=== PATIENT | female | born 1950 | race Caucasian/White ===

== ENCOUNTER → 2016-07-12 | Outpatient (CLI) | payer MEDICARE, OTHER ==
--- NOTE | 2016-07-12 16:51 | REP ---
Chest x-ray: Two views. History: Abnormal lung sounds. Findings: The lungs are well inflated and clear. Pleural angles are sharp. Heart size is normal. The aorta is somewhat tortuous. Pulmonary vasculature is not increased. No significant bony abnormality is seen. No change from the May 13, 2015 prior chest x-ray. Impression: No active disease. Signed by Rudi Bazan MD 07/12/2016 05:02 P
== END ==
LOC: M LRY 16:03
PROVIDERS: ATTEND Nurse Practitioner Family
DX: R09.89 Other specified symptoms and signs involving the circulatory and respiratory systems (principal)

== ENCOUNTER → 2016-07-12 | Outpatient (REF) | payer MEDICARE, OTHER | END | disposition home or self-care (01) | LOC: M SFHCLERA 15:25 | PROVIDERS: ATTEND Nurse Practitioner Family | DX: R30.0 Dysuria (principal); J45.901 Unspecified asthma with (acute) exacerbation | CPT/HCPCS: 71020; 81002; 87086; 87880; 94640; G0463 ==

== ENCOUNTER → 2017-08-19 | Outpatient (CLI) | payer MEDICARE, OTHER | LOC: M LRY 15:33 | DX: R50.9 Fever, unspecified (principal); R06.2 Wheezing; R10.32 Left lower quadrant pain; R35.0 Frequency of micturition | CPT/HCPCS: 71046; 87086 ==

== ENCOUNTER → 2017-08-19 | Outpatient (REF) | payer MEDICARE, OTHER | LOC: M SFHCLERA 16:11 | DX: R35.0 Frequency of micturition (principal) | CPT/HCPCS: 87086 ==

== ENCOUNTER → 2018-09-25 | Outpatient (REF) | payer MEDICARE, BC, OTHER ==
[2018-09-25 20:05] LABS: CHLAMYDIA DNA AMPLIFICATION NEGATIVE (NEGATIVE); GC DNA AMPLIFICATION NEGATIVE (NEGATIVE)
== END ==
LOC: M SFHCLERA 11:52
PROVIDERS: ATTEND Nurse Practitioner Family
DX: R30.0 Dysuria (principal)
CPT/HCPCS: 81002; 87086; 87661; G0463

== ENCOUNTER → 2019-05-29 | Outpatient (CLI) | payer MEDICARE, BC, OTHER | LOC: M RAD 10:47 | PROVIDERS: ATTEND Internal Medicine Cardiovascular Disease | DX: I50.9 Heart failure, unspecified (principal) ==

== ENCOUNTER → 2019-10-12 | Outpatient (REF) | payer MEDICARE, BC, OTHER | LOC: M SFHCLERA 14:08 | PROVIDERS: ATTEND Physician Assistant | DX: R39.15 Urgency of urination (principal) ==

== ENCOUNTER → 2019-10-12 | Outpatient (CLI) | payer MEDICARE, BC, OTHER ==
--- NOTE | 2019-10-12 16:15 | REP ---
LEFT HIP, TWO VIEWS: There is no evidence of an acute fracture, dislocation or intrinsic bone disease. IMPRESSION: No fracture or dislocation. Electronically Signed by Leo Baez MD 10/12/2019 04:24 P
== END ==
LOC: M LRY 14:13
PROVIDERS: ATTEND Physician Assistant
DX: M79.605 Pain in left leg (principal); M54.9 Dorsalgia, unspecified; M25.552 Pain in left hip
CPT/HCPCS: 73502; 81002; 87086; G0463

== ENCOUNTER → 2020-03-30 | Outpatient (REF) | payer MEDICARE, BC, OTHER ==
[2020-03-30 20:58] LABS: APPEARANCE, URINE HAZY (CLEAR); BACTERIA, URINE AUTO NEGATIVE (NEGATIVE); BILIRUBIN, URINE AUTO NEGATIVE (NEGATIVE); BLOOD, URINE BLOOD NEGATIVE (NEGATIVE); COLOR, URINE YELLOW (YELLOW); GLUCOSE, URINE (UA) AUTO 1+ mg/dL (NEGATIVE); KETONE, URINE AUTO NEGATIVE (NEGATIVE); LEUKOCYTE ESTERASE, URINE AUTO 2+ (NEGATIVE); NITRITE, URINE AUTO NEGATIVE (NEGATIVE); PROTEIN, URINE AUTO NEGATIVE (NEGATIVE); RBC, URINE AUTO 4 /HPF (0-3); SPECIFIC GRAVITY URINE AUTO 1.006 (1.002-1.035); SQUAMOUS EPITHELIAL CELL UR AU 1 /HPF (0-6); UROBILINOGEN, URINE AUTO 0.2 mg/dL (0.0-2.0); WBC, URINE AUTO 7 /HPF (0-3)
== END ==
LOC: M LAB 20:48
PROVIDERS: ATTEND Physician Assistant Medical
DX: N39.0 Urinary tract infection, site not specified (principal)

== ENCOUNTER → 2020-07-10 | Outpatient (REF) | payer MEDICARE, BC, OTHER ==
[2020-07-10 18:32] LABS: C REACTIVE PROTEIN QUANTITATIV 0.45 MG/DL (0.00-0.30)
[2020-07-14 17:11] LABS: ANCA-ATYPICAL <1:20 titer (Neg:<1:20); ANTI DS-DNA AB Negative (Negative); ANTINUCLEAR ANTIBODIES DIRECT Negative (Negative); CYTOPLASMIC NEUTROP AB ANCA-C <1:20 titer (Neg:<1:20); PERINUCLEAR AB ANCA-P <1:20 titer (Neg:<1:20)
== END ==
LOC: M LAB REF 16:59
PROVIDERS: ATTEND Internal Medicine Nephrology
DX: I50.9 Heart failure, unspecified (principal); M32.10 Systemic lupus erythematosus, organ or system involvement unspecified

== ENCOUNTER → 2020-08-01 | Outpatient (CLI) | payer MEDICARE, BC, OTHER ==
--- NOTE | 2020-08-05 15:44 | SLEEPHOME ---
DATE: 08/01/2020 ORDERED BY: Ginger Barrera NP Diagnostic home sleep testing was performed due to concern for the obstructive sleep apnea syndrome. For testing, a nocturnal T3 respiratory monitoring device was used. Continuous record was made of pulse, oxygen saturation, air flow, chest and abdominal strain, and body position. Nine hours and 59 minutes of data were reviewed. There were 9 hours and 53 minutes marked as time in bed. During the interval marked time in bed, there were 119 respiratory events identified of 10 seconds in duration or greater for a respiratory event index of 12. The events were primarily obstructive. Ten mixed and central apneas were seen. Baseline pulse rate was 64 beats per minute. Pulse rate ranged 33 to 165. Baseline saturation was 93%. Saturations fell as low as 51%. Testing was performed in both the supine and nonsupine positions. IMPRESSION: Abnormal home sleep testing with repetitive respiratory events and oxygen desaturations to 51% with a respiratory event index of 12 is consistent with the obstructive sleep apnea syndrome. RECOMMENDATION: The patient should be encouraged to undergo a formal sleep evaluation.
== END ==
LOC: M SLEEP HO 08:54
PROVIDERS: ATTEND Physician Assistant
DX: R06.02 Shortness of breath (principal)

== ENCOUNTER 2021-05-19 18:47 | Emergency (ER) | payer MEDICARE, BC, OTHER ==
[~2021-05-19] VITALS: Ht 157.5 cm; Wt 106.8 kg
[2021-05-19] MEDS ORDERED: NS 500 ML IV ONE (19:00)
--- NOTE | 2021-05-19 19:44 | REP ---
INDICATION: Coronavirus workup. COMPARISON: PA and lateral chest images, 08/19/2017. TECHNIQUE: AP portable chest image was obtained. FINDINGS: There is airspace disease along the left lower lateral lung consistent with a lobar pneumonia. The lungs are otherwise clear. There are no pleural effusions. The heart borders and mediastinum are normal. The upper abdominal bowel gas pattern is normal. There are no significant bony abnormalities of the chest. IMPRESSION: Airspace consolidation in the left lung inferolaterally most consistent with a lobar pneumonia. <Electronically signed by Jose Leslie > 05/19/211940
[2021-05-19 19:49] LABS: BASO % 0.3 % (0.0-1.0); EOS # 0.1 10^3/uL (0.0-0.5); EOS % 1.1 % (0.0-3.0); HEMATOCRIT 34.1 % (36.0-47.0); HEMOGLOBIN 11.2 g/dl (12.0-15.5); LYMPH # 1.2 10^3/uL (1.5-5.0); MEAN CORPUSCULAR HEMOGLOBIN 29.3 pg (27.0-33.0); MEAN CORPUSCULAR HGB CONC 32.8 g/dl (32.0-36.5); MEAN CORPUSCULAR VOLUME 89.3 fl (80.0-96.0); MONO # 1.1 10^3/uL (0.0-0.8); MONO % 9.9 % (2.0-8.0); NEUTROPHILS # 8.6 10^3/uL (1.5-8.5); PLATELET COUNT, AUTOMATED 254 10^3/uL (150-450); RED BLOOD COUNT 3.82 10^6/uL (4.00-5.40); WHITE BLOOD COUNT 11.2 10^3/uL (4.0-10.0)
[2021-05-19 20:01] LABS: INR 1.24
[2021-05-19 20:02] LABS: PARTIAL THROMBOPLASTIN TIME 30.3 SECONDS (25.9-37.0)
[2021-05-19] MEDS ORDERED: LISI-898 PO (20:02)
[2021-05-19] MEDS ORDERED: PRAV20TA2 PO (20:02)
[2021-05-19] MEDS ORDERED: TORS10TA3 PO (20:02)
[2021-05-19] MEDS ORDERED: INSUDET SC (20:02)
[2021-05-19] MEDS ORDERED: SPIR-10 PO (20:02)
[2021-05-19 20:11] LABS: ALBUMIN 2.1 GM/DL (3.2-5.2); ALT/SGPT 27 U/L (12-78); BILIRUBIN,TOTAL 2.3 MG/DL (0.2-1.0); BLOOD UREA NITROGEN 12 MG/DL (7-18); CALCIUM LEVEL 8.5 MG/DL (8.8-10.2); CARBON DIOXIDE LEVEL 31 MEQ/L (21-32); CHLORIDE LEVEL 101 MEQ/L (98-107); CREATININE FOR GFR 0.94 MG/DL (0.55-1.30); D-DIMER QUANT 3917.09 ng/ml (<500); FERRITIN 1323 NG/ML (8-252); GLOMERULAR FILTRATION RATE > 60.0 (>39); GLUCOSE, FASTING 261 MG/DL (70-100); LDH LACTATE DEHYDROGENASE 257 U/L (84-246); MAGNESIUM LEVEL 1.8 MG/DL (1.8-2.4); POTASSIUM SERUM 3.2 MEQ/L (3.5-5.1); SODIUM LEVEL 139 MEQ/L (136-145); TOTAL PROTEIN 6.5 GM/DL (6.4-8.2)
[2021-05-19 20:22] LABS: MB/CK RELATIVE INDEX 0.87 (< OR =4)
--- OUTSIDE RECORDS SUMMARY | 2021-05-19 20:57 | CCD ---
Author Author [facility] Organization [facility] Address Unknown Phone Unavailable Care Team Providers Care Crystal Grinder Name Role Phone REGGIE, L CHANDA PA Unavailable Unavailable REGGIE, L CHANDA PA Unavailable Unavailable REGGIE, L CHANDA PA Unavailable Unavailable REGGIE, L CHANDA PA Unavailable Unavailable REGGIE, L CHANDA PA Unavailable Unavailable REGGIE, L CHANDA PA Unavailable Unavailable REGGIE, L CHANDA PA Unavailable Unavailable REGGIE, L CHANDA PA Unavailable Unavailable REGGIE, L CHANDA PA Unavailable Unavailable REGGIE, L CHANDA PA Unavailable Unavailable REGGIE, L CHANDA PA Unavailable Unavailable REGGIE, L CHANDA PA Unavailable Unavailable REGGIE, L CHANDA PA Unavailable Unavailable REGGIE, L CHANDA PA Unavailable Unavailable REGGIE, L CHANDA PA Unavailable Unavailable REGGIE, L CHANDA PA Unavailable Unavailable Hadian, Edgar Unavailable Unavailable Hadian, Edgar Unavailable Unavailable Hadian, Edgar Unavailable Unavailable Hadian, Edgar Unavailable Unavailable Hadian, Edgar Unavailable Unavailable Hadian, Edgar Unavailable Unavailable Hadian, Edgar Unavailable Unavailable Hadian, Edgar Unavailable Unavailable Hadian, Edgar Unavailable Unavailable Hadian, Edgar Unavailable Unavailable Hadian, Edgar Unavailable Unavailable Hadian, Edgar Unavailable Unavailable Hadian, Edgar Unavailable Unavailable Hadian, Edgar Unavailable Unavailable Hadian, Edgar Unavailable Unavailable Hadian, Edgar Unavailable Unavailable Hadian, Edgar Unavailable Unavailable Hadian, Edgar Unavailable Unavailable Hadian, Edgar Unavailable Unavailable Hadian, Edgar Unavailable Unavailable Hadian, Edgar Unavailable Unavailable Hadian, Edgar Unavailable Unavailable Hadian, Edgar Unavailable Unavailable Hadian, Edgar Unavailable Unavailable Hadian, Edgar Unavailable Unavailable Hadian, Edgar Unavailable Unavailable Hadian, Edgar Unavailable Unavailable Hadian, Edgar Unavailable Unavailable Hadian, Edgar Unavailable Unavailable Hadian, Edgar Unavailable Unavailable Hadian, Edgar Unavailable Unavailable Hadian, Edgar Unavailable Unavailable Hadian, Edgar Unavailable Unavailable Hadian, Edgar Unavailable Unavailable Hadian, Edgar Unavailable Unavailable Hadian, Edgar Unavailable Unavailable Hadian, Edgar Unavailable Unavailable Hadian, Edgar Unavailable Unavailable Hadian, Edgar Unavailable Unavailable Hadian, Edgar Unavailable Unavailable Hadian, Edgar Unavailable Unavailable Hadian, Edgar Unavailable Unavailable Griffiths, L Radha LIGHT INDUSTRIAL SUPERVISOR Unavailable Unavailable Griffiths, L Radha LIGHT INDUSTRIAL SUPERVISOR Unavailable Unavailable Griffiths, L Radha LIGHT INDUSTRIAL SUPERVISOR Unavailable Unavailable Griffiths, L Radha LIGHT INDUSTRIAL SUPERVISOR Unavailable Unavailable Griffiths, L Radha LIGHT INDUSTRIAL SUPERVISOR Unavailable Unavailable Griffiths, L Radha LIGHT INDUSTRIAL SUPERVISOR Unavailable Unavailable Griffiths, L Radha LIGHT INDUSTRIAL SUPERVISOR Unavailable Unavailable Griffiths, L Radha LIGHT INDUSTRIAL SUPERVISOR Unavailable Unavailable Griffiths, L Radha LIGHT INDUSTRIAL SUPERVISOR Unavailable Unavailable Griffiths, L Radha LIGHT INDUSTRIAL SUPERVISOR Unavailable Unavailable Griffiths, L Radha LIGHT INDUSTRIAL SUPERVISOR Unavailable Unavailable Griffiths, L Radha LIGHT INDUSTRIAL SUPERVISOR Unavailable Unavailable Griffiths, L Radha LIGHT INDUSTRIAL SUPERVISOR Unavailable Unavailable Griffiths, L Radha LIGHT INDUSTRIAL SUPERVISOR Unavailable Unavailable Griffiths, L Radha LIGHT INDUSTRIAL SUPERVISOR Unavailable Unavailable Griffiths, L Radha LIGHT INDUSTRIAL SUPERVISOR Unavailable Unavailable Griffiths, L Radha LIGHT INDUSTRIAL SUPERVISOR Unavailable Unavailable Griffiths, L Radha LIGHT INDUSTRIAL SUPERVISOR Unavailable Unavailable Griffiths, L Radha LIGHT INDUSTRIAL SUPERVISOR Unavailable Unavailable Griffiths, L Radha LIGHT INDUSTRIAL SUPERVISOR Unavailable Unavailable Griffiths, L Radha LIGHT INDUSTRIAL SUPERVISOR Unavailable Unavailable Griffiths, L Radha LIGHT INDUSTRIAL SUPERVISOR Unavailable Unavailable Griffiths, L Radha LIGHT INDUSTRIAL SUPERVISOR Unavailable Unavailable Griffiths, L Radha LIGHT INDUSTRIAL SUPERVISOR Unavailable Unavailable Griffiths, L Radha LIGHT INDUSTRIAL SUPERVISOR Unavailable Unavailable Griffiths, L Radha LIGHT INDUSTRIAL SUPERVISOR Unavailable Unavailable Griffiths, L Radha LIGHT INDUSTRIAL SUPERVISOR Unavailable Unavailable Griffiths, L Radha LIGHT INDUSTRIAL SUPERVISOR Unavailable Unavailable Griffiths, L Radha LIGHT INDUSTRIAL SUPERVISOR Unavailable Unavailable Griffiths, L Radha LIGHT INDUSTRIAL SUPERVISOR Unavailable Unavailable Griffiths, L Radha LIGHT INDUSTRIAL SUPERVISOR Unavailable Unavailable Griffiths, L Radha LIGHT INDUSTRIAL SUPERVISOR Unavailable Unavailable Griffiths, L Radha LIGHT INDUSTRIAL SUPERVISOR Unavailable Unavailable Griffiths, L Radha LIGHT INDUSTRIAL SUPERVISOR Unavailable Unavailable Griffiths, L Radha LIGHT INDUSTRIAL SUPERVISOR Unavailable Unavailable Griffiths, L Radha LIGHT INDUSTRIAL SUPERVISOR Unavailable Unavailable Griffiths, L Radha LIGHT INDUSTRIAL SUPERVISOR Unavailable Unavailable Griffiths, L Radha LIGHT INDUSTRIAL SUPERVISOR Unavailable Unavailable Griffiths, L Radha LIGHT INDUSTRIAL SUPERVISOR Unavailable Unavailable Griffiths, L Radha LIGHT INDUSTRIAL SUPERVISOR Unavailable Unavailable Griffiths, L Radha LIGHT INDUSTRIAL SUPERVISOR Unavailable Unavailable Griffiths, L Radha LIGHT INDUSTRIAL SUPERVISOR Unavailable Unavailable REGGIE, L CHANDA PA Unavailable Unavailable REGGIE, L CHANDA PA Unavailable Unavailable REGGIE, L CHANDA PA Unavailable Unavailable REGGIE, L CHANDA PA Unavailable Unavailable REGGIE, L CHANDA PA Unavailable Unavailable REGGIE, L CHANDA PA Unavailable Unavailable REGGIE, L CHANDA PA Unavailable Unavailable REGGIE, L CHANDA PA Unavailable Unavailable REGGIE, L CHANDA PA Unavailable Unavailable REGGIE, L CHANDA PA Unavailable Unavailable REGGIE, L CHANDA PA Unavailable Unavailable REGGIE, L CHANDA PA Unavailable Unavailable REGGIE, L CHANDA PA Unavailable Unavailable REGGIE, L CHANDA PA Unavailable Unavailable REGGIE, L CHANDA PA Unavailable Unavailable REGGIE, L CHANDA PA Unavailable Unavailable WATERS, A JOSE MD Unavailable Unavailable WATERS, A JOSE MD Unavailable Unavailable WATERS, A JOSE MD Unavailable Unavailable WATERS, A JSOE MD Unavailable Unavailable WATERS, A JOSE MD Unavailable Unavailable WATERS, A JOSE MD Unavailable Unavailable WATERS, Romario JOSE MD Unavailable Unavailable WATERS, Romario JOSE MD Unavailable Unavailable WATERS, Romario JOSE Unavailable Unavailable WATERS, A JOSE MD Unavailable Unavailable WATERS, A JOSE MD Unavailable Unavailable WATERS, A JOSE MD Unavailable Unavailable WATERS, A JOSE MD Unavailable Unavailable WATERS, A JOSE MD Unavailable Unavailable WATERS, A JOSE MD Unavailable Unavailable WATERS, A JOSE MD Unavailable Unavailable WATERS, A JOSE MD Unavailable Unavailable WATERS, A JOSE MD Unavailable Unavailable WATERS, A JOSE MD Unavailable Unavailable WATERS, A JOSE MD Unavailable Unavailable WATERS, A JOSE MD Unavailable Unavailable WATERS, A JOSE MD Unavailable Unavailable WATERS, A JOSE MD Unavailable Unavailable WATERS, A JOSE MD Unavailable Unavailable WATERS, A JOSE MD Unavailable Unavailable WATERS, A JOSE MD Unavailable Unavailable WATERS, A JOSE MD Unavailable Unavailable WATERS, A JOSE MD Unavailable Unavailable WATERS, A JOSE MD Unavailable Unavailable WATERS, A JOSE MD Unavailable Unavailable Shambo, Sylvain Prather MD Unavailable Unavailable Shambo, Sylvain Prather MD Unavailable Unavailable Shambo, Sylvain Prather MD Unavailable Unavailable Shambo, Sylvain Prather MD Unavailable Unavailable Shambo, Sylvain Prather MD Unavailable Unavailable Shambo, Sylvain Prather MD Unavailable Unavailable Shambo, Sylvain Prather MD Unavailable Unavailable Shambo, Sylvain Prather MD Unavailable Unavailable Shambo, Sylvain Prather MD Unavailable Unavailable Shambo, Sylvani Prather MD Unavailable Unavailable Shambo, Sylvain Prather MD Unavailable Unavailable Shambo, Sylvain Prather MD Unavailable Unavailable Shambo, Sylvain Prather MD Unavailable Unavailable Shambo, Sylvain Prather MD Unavailable Unavailable Shambo, Sylvain Prather MD Unavailable Unavailable Shambo, Sylvain Prather MD Unavailable Unavailable Shambo, Sylvain Prather MD Unavailable Unavailable Shambo, Sylvain Prather MD Unavailable Unavailable Shambo, Sylvain Prather MD Unavailable Unavailable Shambo, Sylvain Prather MD Unavailable Unavailable Shambo, Sylvain Prather MD Unavailable Unavailable Shambo, Sylvain Prather MD Unavailable Unavailable Shambo, Sylvain Prather MD Unavailable Unavailable Shambo, Sylvain Prather MD Unavailable Unavailable Shambo, Sylvain Prather MD Unavailable Unavailable Shambo, Sylvain Prather MD Unavailable Unavailable Shambo, Sylvain Prather MD Unavailable Unavailable Shambo, Sylvain Prather MD Unavailable Unavailable Shambo, Sylvain Prather MD Unavailable Unavailable Shambo, Sylvain Prather MD Unavailable Unavailable Shambo, Sylvain Prather MD Unavailable Unavailable Shambo, Sylvain Prather MD Unavailable Unavailable Shambo, Sylvain Prather MD Unavailable Unavailable Shambo, Sylvain Prather MD Unavailable Unavailable Shambo, Sylvain Prather MD Unavailable Unavailable Shambo, Sylvain Prather MD Unavailable Unavailable Shambo, Sylvain Prather MD Unavailable Unavailable Shambo, Sylvain Prather MD Unavailable Unavailable Shambo, Sylvain Prather MD Unavailable Unavailable Shambo, Sylvain Prathre MD Unavailable Unavailable Shambo, Sylvain Prather MD Unavailable Unavailable Shambo, Sylvain Prather MD Unavailable Unavailable Shambo, Sylvain Prather MD Unavailable Unavailable Shambo, Sylvain Prather MD Unavailable Unavailable Shambo, Sylvain Prather MD Unavailable Unavailable Shambo, Sylvain Prather MD Unavailable Unavailable Shambo, Sylvain Prather MD Unavailable Unavailable Shambo, Sylvain Prather MD Unavailable Unavailable Shambo, Sylvain Prather MD Unavailable Unavailable Shambo, Sylvain Prather MD Unavailable Unavailable Shambo, Sylvain Prather MD Unavailable Unavailable Shambo, Sylvain Prather MD Unavailable Unavailable Shambo, Sylvain Prather MD Unavailable Unavailable Shambo, Sylvain Prather MD Unavailable Unavailable Shambo, Sylvain Prather MD Unavailable Unavailable Shambo, Sylvain Prather MD Unavailable Unavailable Shambo, Sylvain Prather MD Unavailable Unavailable Shambo, Sylvain Prather MD Unavailable Unavailable Shambo, Sylvain Prather MD Unavailable Unavailable Shambo, Sylvain Prather MD Unavailable Unavailable Shambo, Sylvain Prather MD Unavailable Unavailable Shambo, Sylvain Prather MD Unavailable Unavailable Shambo, Sylvain Prather MD Unavailable Unavailable Shambo, Sylvain Prather MD Unavailable Unavailable Shambo, Sylvain Prather MD Unavailable Unavailable Shambo, Sylvain Prather MD Unavailable Unavailable Shambo, Sylvain Prather MD Unavailable Unavailable NOT, SPECIFIED Unavailable Unavailable HARO, W KETURAH OD Unavailable Unavailable HARO, W KETURAH OD Unavailable Unavailable HARO, W KETURAH OD Unavailable Unavailable HARO, W KETURAH OD Unavailable Unavailable HARO, W KETURAH OD Unavailable Unavailable HARO, W KETURAH OD Unavailable Unavailable HARO, W KETURAH OD Unavailable Unavailable HARO, W KETURAH OD Unavailable Unavailable HARO, W KETURAH OD Unavailable Unavailable HARO, W KETURAH OD Unavailable Unavailable HARO, W KETURAH OD Unavailable Unavailable CHANLIECCO, Pb BONILLA MD Unavailable Unavailable CHANLIECCO, Pb BONILLA MD Unavailable Unavailable CHANLIECCO, Pb BONILLA MD Unavailable Unavailable CHANLIECCO, Pb BONILLA MD Unavailable Unavailable CHANLIECCO, Pb BONILLA MD Unavailable Unavailable CHANLIECCO, Pb BONILLA MD Unavailable Unavailable CHANLIECCO, Pb BONILLA MD Unavailable Unavailable CHANLIECCO, Pb BONILLA MD Unavailable Unavailable CHANLIECCO, Pb BONILLA MD Unavailable Unavailable CHANLIECCO, Pb BONILLA MD Unavailable Unavailable CHANLIECCO, Pb BONILLA MD Unavailable Unavailable Re-disclosure Warning The records that you are about to access may contain information from federally-assisted alcohol or drug abuse programs. If such information is present, then the following federally mandated warning applies: This information has been disclosed to you from records protected by federal confidentiality rules (42 CFR part 2). The federal rules prohibit you from making any further disclosure of this information unless further disclosure is expressly permitted by the written consent of the person to whom it pertains or as otherwise permitted by 42 CFR part 2. A general authorization for the release of medical or other information is NOT sufficient for this purpose. The Federal rules restrict any use of the information to criminally investigate or prosecute any alcohol or drug abuse patient.The records that you are about to access may contain highly sensitive health information, the redisclosure of which is protected by Article 27-F of the [facility] Public Health law. If you continue you may have access to information: Regarding HIV / AIDS; Provided by facilities licensed or operated by the [facility] Office of Mental Health; or Provided by the [facility] Office for People With Developmental Disabilities. If such information is present, then the following [facility] mandated warning applies: This information has been disclosed to you from confidential records which are protected by state law. State law prohibits you from making any further disclosure of this information without the specific written consent of the person to whom it pertains, or as otherwise permitted by law. Any unauthorized further disclosure in violation of state law may result in a fine or group home sentence or both. A general authorization for the release of medical or other information is NOT sufficient authorization for further disc losure. Allergies and Adverse Reactions Type Description Substance Reaction Status Data Source(s ) Food allergy nut - unspecified nut - unspecified Blisters on body [facility] Drug allergy influenza virus vaccine, specific influe nza virus vaccine, specific Other, not listed [facility] Drug allergy aspirin Aspirin HIVES [facility] Drug allergy metformin HCl metformin HCl Rash [facility] Food allergy COCONUT COCONUT [facility] Family History Family Member Name Family Member Gender Family Member Status Date o f Status Description Data Source(s) Unknown Condition [facility] Condition [facility] Condition [facility] Unknown Condition [facility] Unknown Condition [facility] Unknown Condition [facility] Unknown Condition [facility] Unknown Condition [facility] Unknown Condition [facility] Unknown Condition [facility] Unknown Condition [facility] Unknown Condition [facility] Unknown Condition [facility] Unknown Condition [facility] Unknown Condition [facility] Unknown [facility] Unknown Condition [facility] Unknown Condition [facility] Unknown Condition [facility] Unknown Condition [facility] Unknown Condition [facility] Unknown Condition [facility] Unknown Condition [facility] Condition [facility] Unknown Condition [facility] Unknown Condition [facility] Unknown Condition [facility] Unknown Condition [facility] Unknown Condition [facility] Unknown Condition [facility] Unknown Condition [facility] Unknown Condition [facility] Unknown Condition [facility] Unknown Condition [facility] Unknown Condition [facility] Condition [facility] Unknown Condition [facility] Unknown Condition [facility] Unknown Condition [facility] Unknown Condition [facility] Unknown Condition [facility] Unknown Condition [facility] Unknown Condition [facility] Unknown Condition [facility] Unknown Condition [facility] Unknown Unknown Encounters Encounter Providers Location Date Indications Data Source(s ) Outpatient Attender: [facility] 04:20:00 PM [facility] 05/12/2021 04:21:00 PM EST Z20.828 [facility] Z20.828 Patient discharged. Outpatient Attender: Crescencio Salinas MDReferrer: Crescencio Salinas MD 05/04/2021 09:09:00 AM [facility] 05/04/2021 09:55:00 AM EST [facility] Outpatient Attender: Crescencio Salinas MDReferrer: Crescencio Salinas MD 04/30/2021 09:21:00 AM [facility] 04/30/2021 09:42:00 AM EST [facility] Outpatient Attender: Crescencio Salinas MDReferrer: Crescencio Salinas MD 04/24/2021 11:11:00 AM EST [facility] Outpatient Attender: Crescencio MURDOCKeferrer: Crescencio Salinas MD 04/21/2021 01:41:00 PM EST - 04/21/2021 02:09:00 PM EST [facility] Emergency Attender: IRENE GOLDEN MDConsultant: SPEC IFIED NOT 04/16/2021 10:21:00 AM EDT - 04/16/2021 02:45:00 PM EDT [facility] Patient discharged. Outpatient Attender: Crescencio Salinas MD 04/07/2021 11:52:00 A M EDT R05 [facility] R05 Outpatient Attender: Crescencio MURDOCKeferrer: Crescencio Salinas MD 03/24/2021 08:10:00 AM EDT - 03/24/2021 08:37:00 AM EDT [facility] Outpatient Attender: Crescencio MURDOCKeferrer: Crescencio Salinas MD 03/19/2021 03:27:00 PM EDT - 03/19/2021 03:41:00 PM EDT [facility] CLINIC Attender: KETURAH HARO OD [id number] 03/19/2021 12:00:00 AM EDT [facility] Emergency Attender: JOSE WATERS MD 10/2020 09:08:00 AM EDT - 03/17/2021 11:49:00 AM EDT HAND PAIN [facility] l HAND PAIN Patient discharged. Outpatient Attender: Crescencio Deniseerrer: Crescencio Salinas MD 03/09/2021 08:11:00 AM EDT - 03/09/2021 08:40:00 AM EDT [facility] Outpatient Attender: CHANDA BURLESON Main Office 12/29/2020 0 8:00:00 AM EDT [facility] ([facility]) Outpatient Attender: Crescencio Deniseerrer: Crescencio Salinas MD 09/25/2020 04:04:00 PM EDT - 09/25/2020 04:24:00 PM EDT [facility] Outpatient Attender: Crescencio Salinas MD 09/22/2020 12:2 6:00 PM EDT PAIN,INJURY 4- 5 TOES [facility] PAIN,INJURY 4-5 TOES Outpatient Attender: Crescencio Salinas MDReferrer: Crescencio Salinas MD 09/22/2020 08:36:00 AM EDT [facility] Outpatient Attender: Crescencio Salinas MDReferrer: Crescencio Salinas MD 07/21/2020 08:04:00 AM EST - 07/21/2020 08:35:00 AM EST [facility] Outpatient Attender: CHANDA BURLESON 07/09/2020 07:18:0 0 AM EST I11.0 [facility] I11.0 Outpatient Attender: CHANDA BURLESON Main Office 06/27/2020 0 1:00:00 PM EST [facility] ([facility]) Outpatient Attender: Radha Griffiths NP 05/27/2020 05:16:0 0 PM EST [facility] Immunizations Vaccine Date Status Description Data Source(s) COVID-19 VACCINE Moderna 03/27/2021 12:00:00 AM EDT completed [facility] Vaccine Series Complete: YESThis Data wa s Submitted to [facility] Via [employer]. COVID-19 VACCINE Moderna 02/27/2021 12:00:00 AM EDT completed [facility] Vaccine Series Complete: NOThis Data was Submitted to [facility] Via [employer]. Medications Medication Brand Name Start Date Product Form Dose Route Admi nistrative Instructions Pharmacy Instructions Status Indications Reaction Description Data Source(s) Cephalexin 500 MG Oral Capsule CEPHALEXIN 04/16/2021 12:00:00 AM EDT capsule 30 TAKE ONE CAPSULE BY MOUTH THREE TIMES A DAY FOR 10 DAY S TAKE ONE CAPSULE BY MOUTH THREE TIMES A DAY FOR 10 DAYS SOLD: 04/16/2021 [facility] 0.6 mg 03/17/2021 12:00:00 AM EDT tablet 10 TAKE ONE TABLET BY MOUTH TWICE A DAY FOR PSEUDOGOUT TAKE ONE TABLET BY MOUTH TWICE A DAY FOR PSEUDOGOUT SO LD: 03/17/2021 [facility] Lisinopril 5 MG Oral Tablet Lisinopril 12/28/2020 12:00:00 AM EDT ORAL active [facility]) Prednisone 20 MG Oral Tablet Prednisone 09/22/2020 08:59:29 AM EDT 40 MG active [facility] Prednisone 20 MG Oral Tablet Prednisone 09/22/2020 08:59:29 AM EDT 40 MG completed [facility] Lisinopril 10 MG Oral Tablet Lisinopril 09/22/2020 08:48:35 AM EDT 5 MG completed [facility] Lisinopril 10 MG Oral Tablet Lisinopril 09/22/2020 08:48:35 AM EDT 5 MG completed [facility] 3 ML insulin detemir 100 UNT/ML Pen Inje ctor Insulin Detemir U-100 (Levemir Flextouch U-100 Insuln) 100 unit/mL (3 mL) insulin pen Insulin Detemir U-100 (Levemir Flextouch U-100 Insuln) 100 unit/mL (3 mL) insulin pen 06/05/2020 11:32:21 AM EST 55 UNIT active [facility] 3 ML insulin detemir 100 UNT/ML Pen Inje ctor Insulin Detemir U-100 (Levemir Flextouch U-100 Insuln) 100 unit/mL (3 mL) insulin pen Insulin Detemir U-100 (Levemir Flextouch U-100 Insuln) 100 unit/mL (3 mL) insulin pen 06/05/2020 11:32:21 AM EST 55 UNIT active [facility] 3 ML insulin detemir 100 UNT/ML Pen Inje ctor Insulin Detemir U-100 (Levemir Flextouch U-100 Insuln) 100 unit/mL (3 mL) insulin pen Insulin Detemir U-100 (Levemir Flextouch U-100 Insuln) 100 unit/mL (3 mL) insulin pen 06/05/2020 11:32:21 AM EST 55 UNIT active [facility] Fluconazole 150 MG Oral Tablet Fluconazole 05/12/2020 04:22:13 PM EST 150 MG active [facility] Fluconazole 150 MG Oral Tablet Fluconazole 05/12/2020 04:22:13 PM EST 150 MG active [facility] Fluconazole 150 MG Oral Tablet Fluconazole 05/12/2020 04:22:13 PM EST 150 MG active [facility] Fluconazole 150 MG Oral Tablet Fluconazole 02/11/2020 09:30:42 AM EDT 150 MG completed [facility] Fluconazole 150 MG Oral Tablet Fluconazole 02/11/2020 09:30:42 AM EDT 150 MG completed [facility] Fluconazole 150 MG Oral Tablet Fluconazole 02/11/2020 09:30:42 AM EDT 150 MG completed [facility] Hydrocortisone 10 MG/ML / Neomycin 3.5 M G/ML / Polymyxin B 44235 UNT/ML Otic Solution Tjggqgco-Fsjhzybac-Hn Nafdfkbz-Cqbwqppxg-Ip 01/25/2020 04:31:26 PM EDT 4 DROPS completed [facility] Hydrocortisone 10 MG/ML / Neomycin 3.5 M G/ML / Polymyxin B 99357 UNT/ML Otic Solution Fjmrwswd-Vjdsynbja-Ai Sidztznv-Fqgmehaou-Ty 01/25/2020 04:31:26 PM EDT 4 DROPS completed [facility] Hydrocortisone 10 MG/ML / Neomycin 3.5 M G/ML / Polymyxin B 61652 UNT/ML Otic Solution Dltrcnlv-Zbirnfcnc-Ts Gzqrwaar-Zrjcfkznp-Sn 01/25/2020 04:31:26 PM EDT 4 DROPS completed [facility] Lisinopril 10 MG Oral Tablet Lisinopril 01/08/2020 08:41:51 AM EDT 10 MG completed [facility] Lisinopril 10 MG Oral Tablet Lisinopril 01/08/2020 08:41:51 AM EDT 10 MG completed [facility] Permethrin 50 MG/ML Topical Cream Permethrin 01/08/2020 08:38:48 AM EDT 1 APPLIC completed [facility] Permethrin 50 MG/ML Topical Cream Permethrin 01/08/2020 08:38:48 AM EDT 1 APPLIC completed [facility] Permethrin 50 MG/ML Topical Cream Permethrin 01/08/2020 08:38:48 AM EDT 1 APPLIC completed [facility] 3 ML insulin detemir 100 UNT/ML Pen Inje ctor Insulin Detemir U-100 (Levemir Flextouch U-100 Insuln) 100 unit/mL (3 mL) insulin pen Insulin Detemir U-100 (Levemir Flextouch U-100 Insuln) 100 unit/mL (3 mL) insulin pen 11/13/2019 07:40:54 AM EDT 55 UNIT completed [facility] 3 ML insulin detemir 100 UNT/ML Pen Inje ctor Insulin Detemir U-100 (Levemir Flextouch U-100 Insuln) 100 unit/mL (3 mL) insulin pen Insulin Detemir U-100 (Levemir Flextouch U-100 Insuln) 100 unit/mL (3 mL) insulin pen 11/13/2019 07:40:54 AM EDT 55 UNIT completed [facility] 3 ML insulin detemir 100 UNT/ML Pen Inje ctor Insulin Detemir U-100 (Levemir Flextouch U-100 Insuln) 100 unit/mL (3 mL) insulin pen Insulin Detemir U-100 (Levemir Flextouch U-100 Insuln) 100 unit/mL (3 mL) insulin pen 11/13/2019 07:40:54 AM EDT 55 UNIT completed [facility] Naproxen 500 MG Oral Tablet Naproxen 01/18/2018 05:23:20 PM EDT 500 MG completed [facility] Naproxen 500 MG Oral Tablet Naproxen 01/18/2018 05:23:20 PM EDT 500 MG completed [facility] Naproxen 500 MG Oral Tablet Naproxen 01/18/2018 05:23:20 PM EDT 500 MG completed [facility] Insurance Providers Payer name Policy type / Coverage type Policy ID Covered democrat ID Covered democrat's relationship to treviño Policy Treviño Plan Information MEDICARE [id number] Self [id number] ASSIGNED MEDICARE (81) [id number] 1 [id number] ASSIGNED MEDICARE (81) [id number] 1 [id number] [employer] [id number] Spouse [id number] [employer]US [employer]BS [place] [facility] [id number] W [id number] CENTER [id number] S [id number] [facility] -O/P [id number] 19 [id number] MEDICARE PART A -O/P [id number] 18 [id number] CENTER -O/P [id number] 18 [id number] [place] [id number] [place] [id number] ANSI-Commercial [id number] ANSI-Commercial [id number] ANSI-Medicare Part B [id number] 1 [id number] ([id number]) [id number] 2 [id number] MEDICARE [id number] SP [id number] T [facility] [id number] 2 [id number] MEDICARE C [id number] S [id number] T O [id number] S [id number] [facility] O [id number] S [id number] Medigap Part B [id number] Self [employer] Medigap Part B [id number] Family Dependent Medicare [place] Primary [id number] Self GHI [facility]-O/P [id number] 18 [id number] MEDICARE -O/P [id number] 18 [id number] GHI/EMBLEM P [id number] P [id number] I [facility] [id number] SP [id number] [facility] OFFICE OF COMMUNITY CARE [id number] SP [id number] I [facility]/P [id number] 18 [id number] [facility] [employer] PROGRAM [id number] MEDICARE [id number] SP [id number] MEDICARE [id number] S [id number] Problems, Conditions, and Diagnoses Code Display Name Description Problem Type Effective Dates Data Source(s) Z794 snf (current) use of insulin 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 Diagnosis 04/16/2021 10:21:00 AM T [facility] E119 Type 2 diabetes mellitus without complic ations Type 2 diabetes mellitus without complications Diagnosis 04/16/2021 10:21:00 AM EDT [facility] I509 Heart failure, unspecified Heart failure, unspecified Diagnosis 04/16/2021 10:21:00 AM EDT [facility] I110 Hypertensive heart disease with heart fa ilure Hypertensive heart disease with heart failure Diagnosis 04/16/2021 10:21:00 AM EDT [facility] [id number] Primary osteoarthritis, right hand Primary osteo arthritis, right hand Diagnosis 04/16/2021 10:21:00 AM EDT [facility] [id number] Cellulitis of left lower limb Cellulitis of left lower limb Diagnosis 04/16/2021 10:21:00 AM EDT [facility] [id number] Pain in left foot Pain in left foot Diagnosis 04/16/2021 10:21:00 AM EDT [facility] Z96.1 Presence of intraocular lens Presence of intraocular l ens Diagnosis 03/19/2021 09:50:23 AM EDT 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 E11.9 Type 2 diabetes mellitus without complic ations Type 2 diabetes mellitus without complic Diagnosis 03/19/2021 09:50:23 AM EDT [facility] H40.053 Ocular hypertension, bilateral Ocular hypertension, bi lateral Diagnosis 03/19/2021 09:50:23 AM EDT [facility] R07.9 Chest pain Chest pain Problem 12/29/2020 12:00:00 AM ED T [facility] ([facility]) I35.0 Aortic valve disorder Aortic valve disorder Problem 06/27/2020 12:00:00 AM EST [facility] ([facility]) Z71.3 Dietary management surveillance Dietary management julian veillance Problem 06/27/2020 12:00:00 AM EST [facility] ([facility]) Surgeries/Procedures Procedure Description Date Indications Data Source(s) 17510 05/12/2021 12:00:00 AM [facility] ECG ROUTINE ECG W/LEAST 12 LDS W/I&R 12/29/2020 12:00: 00 AM EDT [facility] ([facility]) OFFICE OUTPATIENT VISIT 25 MINUTES 12/29/2020 12:00:00 AM EDT [facility] ([facility]) Xray Hand Complete RT 09/22/2020 12:38:00 PM EDT [facility] Radiography of foot (procedure) 09/22/2020 12:38:00 PM EDT [facility] ECG ROUTINE ECG W/LEAST 12 LDS W/I&R 06/27/2020 12:00: 00 AM EST [facility] ([facility]) Viral antigen assay (procedure) 05/27/2020 12:00:00 AM EST [facility] Viral antigen assay (procedure) 05/27/2020 12:00:00 AM [facility] Viral antigen assay (procedure) 05/27/2020 12:00:00 AM [facility] Results ID Date Data Source [id number] 05/12/2021 01:44:00 PM EST [facility] Name Value Range Interpretation Code Description Data Casi rce(s) Supporting Document(s) Respiratory specimen severe acute respir atory syndrome coronavirus 2 (SARS-CoV-2) RNA Positive (qualifier value) [facility] This lab was ordered by [facility] and reported by . ID Date Data Source [id number] 05/13/2021 08:33:00 AM [facility] Name Value Range Interpretation Code Description Data Casi rce(s) Supporting Document(s) SARS-CoV-2 RNA INHOUSE Negative [facility] THIS IS A STATE REPORTABLE COMMUNICABLE DISEASE. Results called 05/13/21 0833,DI read back information to [email or web address] Testing was performed using the [employer] COVID-19 MDx Assay. This test has been authorized by FDA under an (Emergency Use Authorization) EUA for use by authorized laboratories for individuals who are suspected of COVID-19 by their healthcare provider. This test is only authorized for the duration of the declaration that circumstances exist justifying the authorization of emergency use of in vitro diagnostic tests for detection and/or diagnosis of SARS-CoV-2. Methodology: Endpoint RT-PCR. Fact sheets for this EUA assay can be found at the following links: Providers: https://www.[place].gov/media/655271/download Patients : https://www.fda.gov/media/569251/download Positive results are indicative of the presence of REGG-NmY-OHW; clinical correlation with patient history and other diagnostic information is necessary to determine patient infection status. The agent detected may not be the definite cause of disease. Positive results do not rule out bacterial infection or co-infection with other viruses. ID Date Data Source [id number] 05/04/2021 09:34:00 AM [facility] Patient Name: SHIRA GATICA : 1950 Sex: F Pt Unit #: [id number] Location:[facility] Provider: Visit Date/Time: 05/04/21 Primary Insurance: MEDICARE [employer] Secondary Insurance: BC/BS [employer] Intake Vital Signs 05/04/21 09:37 BP 132/80 Blood Pressure Location Lt brachial Position Sitting Respiration 18 Pulse 70 Pulse Source Pulse Oximeter Temp 96.8 F L Temp Source Temporal Artery Scan Pulse Oximetry (%) 98 Oxygen Delivery Method room air Intake Visit Reasons: Gout Nurse Note: 70 year old female here for f/u left foot gout. pt states not much improvement, pain on top of foot from toes to ankle Is patient in pain?: Yes Allergies aspirin [ASPIRIN] Allergy (Intermediate, Verified 03/17/21 09:34) HIVES influenza virus vaccine, specific Allergy (Intermediate, Verified 03/17/21 09:34) Other, not listed metformin HCl [From Glucophage] Allergy (Intermediate, Verified 03/17/21 09:34) Rash nut - unspecified Allergy (Mild, Verified 03/17/21 09:34) Blisters on body COCONUT Allergy (Unverified 03/17/21 09:34) HIV Testing Offer - ages 13-64 Requirement for HIV testing offer been met?: Declines today. Pretest education received and acknowledged Coronavirus Screening Screening Are you currently positive or on isolation for COVID ?: No Do you have any NEW signs of one or more of the following?: no symptoms Do you have NEW signs of at least two of the following?: no symptoms HPI Additional HPI HPI Details: see above. the colchicine may have decreased the pain, some, but not much. she is tolerating it well. still has significant pain with weightbearing. the pain started after closing a door across her foot and abrading it. onset 04/13/21. initial treatment was antibiotics which seemed to decrease the swelling and resolve the redness, but not the pain. pain was concentrated at the base of the toes on the left, with the first mtp being worst, so colchicine for possible gout was prescribed 3-4 days ago. an xray in [place] ED 3 weeks ago was unremarkable. [facility] Medical History (Updated 05/04/21 @ 09:52 by Crescencio Salinas M.D.) Acute arthritis Acute cervical radiculopathy Asthma CKD (chronic kidney disease) Degenerative joint disease of left hip Diabetes mellitus type 2 in obese Diastolic CHF Gastroesophageal reflux disease Intertriginous candidiasis Mixed hyperlipidemia Osteopenia Seasonal allergic rhinitis Surgical History section Cholecystectomy Status post tonsillectomy Status post tubal ligation Family History Other Asthma Diabetes Heart disease Primary tuberculosis Social History Does the Patient have a Healthcare Proxy: No Does Patient have a DNR?: No Does Patient have a Living Will?: No Hx Recent Travel (where): No Smoking Status: Never smoker alcohol intake: never substance use type: does not use Exam Musc Other: the left first mtp is discolored in dusky shade and very tenders as are the other mtp's, but to a lesser degree. the rest of the foot appears normal. Assessment Plan Assessment Plan (1) Pain in left foot: Status: Acute Code(s): M79.672 - Pain in left foot SNOMED Code(s): 46394740 Category: Medical Plan: i am still not sure what is the correct diagnosis. will get an xray and refer to ortho. she will stay on the colchicine and recheck here prn. 20 minute visit. Orders: Orders Xray Foot Complete LT Today M79.672 - Pain in left foot Referrals Orthopedics Referral M79.672 - Pain in left foot Coding Level of Care Code Estab Pt Lvl 3 (20-29 min) Diagnoses Pain in left foot M79.672 Additional Codes Intake - Is patient in pain?: Yes (1125F) <Electronically signed by Crescencio Salnias MD> 05/04/21 1002 Name Value Range Interpretation Code Description Data Casi rce(s) Supporting Document(s) ID Date Data Source [id number] 04/30/2021 09:21:00 AM [facility] Patient Name: SHIRA GATICA : 1950 Sex: F Pt Unit #: [id number] Location:[facility] Provider: Visit Date/Time: 04/30/21 Primary Insurance: MEDICARE [employer] Secondary Insurance: BC/BS [employer] Intake Vital Signs 04/30/21 09:24 BP 120/80 Blood Pressure Location Lt brachial Position Sitting Respiration 18 Pulse 76 Pulse Source Pulse Oximeter Temp 97.1 F L Temp Source Temporal Artery Scan Pulse Oximetry (%) 98 Oxygen Delivery Method room air Intake Visit Reasons: Cellulitis Nurse Note: 70 year old remale here for f/u cellulitis on left foot, pt states better but still having pain. Is patient in pain?: Yes Allergies aspirin [ASPIRIN] Allergy (Intermediate, Verified 03/17/21 09:34) HIVES influenza virus vaccine, specific Allergy (Intermediate, Verified 03/17/21 09:34) Other, not listed metformin HCl [From Glucophage] Allergy (Intermediate, Verified 03/17/21 09:34) Rash nut - unspecified Allergy (Mild, Verified 03/17/21 09:34) Blisters on body COCONUT Allergy (Unverified 03/17/21 09:34) Vision Wearing glasses?: Yes HIV Testing Offer - ages 13-64 Requirement for HIV testing offer been met?: Declines today. Pretest education received and acknowledged Coronavirus Screening Screening Are you currently positive or on isolation for COVID ?: No Do you have any NEW signs of one or more of the following?: no symptoms Do you have NEW signs of at least two of the following?: no symptoms HPI Additional HPI HPI Details: see above. her foot is resolved except at the left first MTP which very painful. the base of the other 4 toes is slightly tender. [facility] Medical History (Updated 04/21/21 @ 14:21 by Crescencio Salinas M.D.) Acute arthritis Acute cervical radiculopathy Asthma CKD (chronic kidney disease) Degenerative joint disease of left hip Diabetes mellitus type 2 in obese Diastolic CHF Gastroesophageal reflux disease Intert riginous candidiasis Mixed hyperlipidemia Osteopenia Seasonal allergic rhinitis Surgical History section Cholecystectomy Status post tonsillectomy Status post tubal ligation Family History Other Asthma Diabetes Heart disease Primary tuberculosis Social History Does the Patient have a Healthcare Proxy: No Does Patient have a DNR?: No Does Patient have a Living Will?: No Hx Recent Travel (where): No Smoking Status: Never smoker alcohol intake: never substance use type: does not use Exam Musc Other: the first left mtp is very tender and slightly red. the base of the other 4 toes moderately tender Assessment Plan Assessment Plan (1) Cellulitis: Status: Acute Comment: left foot Code(s): L03.90 - Cellulitis, unspecified SNOMED Code(s): 170259374 Category: Medical Plan: i am not sure this was ever cellulitis and seems to be gout at present. she has had one questionable diagnosis of gout in the near past in her right wrist. will start colchicine and recheck in 4days. 25 minute visit. Medications: Changed From colchicine 0.6 mg PO BID 10 tabs 1RF pseudogout To colchicine take 2 tabs for the first dose 0.6 mg PO BID 20 tabs 1RF pseudogout Discontinued fluconazole Discontinued Reason: Order 150 mg PO QWEEK 12 tabs 3RF vancomycin Discontinued Reason: Order 250 mg PO QID 30 caps 0RF Coding Level of Care Code Estab Pt Lvl 3 (20-29 min) Diagnoses Cellulitis L03.90 Additional Codes Intake - Is patient in pain?: Yes (0455F) <Electronically signed by Crescencio Salinas MD> 04/30/21 0943 Name Value Range Interpretation Code Description Data Casi rce(s) Supporting Document(s) ID Date Data Source [id number] 04/24/2021 11:10:00 AM [facility] Patient Name: SHIRA GATICA : 1950 Sex: F Pt Unit #: [id number] Location:[facility] Provider: Visit Date/Time: 04/24/21 Primary Insurance: MEDICARE [employer] Secondary Insurance: BC/BS [employer] Intake Vital Signs 04/24/21 11:13 BP 132/80 Blood Pressure Location Lt brachial Position Sitting Respiration 18 Pulse 77 Pulse Source Pulse Oximeter Temp 96.6 F L Temp Source Temporal Artery Scan Pulse Oximetry (%) 98 Oxygen Delivery Method room air Intake Visit Reasons: Cellulitis Nurse Note: 70 year old female here for f/u on cellulitis on left foot. pt states a little better. Is patient in pain?: Yes Allergies aspirin [ASPIRIN] Allergy (Intermediate, Verified 03/17/21 09:34) HIVES influenza virus vaccine, specific Allergy (Intermediate, Verified 03/17/21 09:34) Other, not listed metformin HCl [From Glucophage] Allergy (Intermediate, Verified 03/17/21 09:34) Rash nut - unspecified Allergy (Mild, Verified 03/17/21 09:34) Blisters on body COCONUT Allergy (Unverified 03/17/21 09:34) HIV Testing Offer - ages 13-64 Requirement for HIV testing offer been met?: Declines today. Pretest education received and acknowledged Coronavirus Screening Screening Are you currently positive or on isolation for COVID ?: No Do you have any NEW signs of one or more of the following?: no symptoms Do you have NEW signs of at least two of the following?: no symptoms HPI Additional HPI HPI Details: see above. she states that the pain is decreased somewhat. she is tolerating the antibiotics. thevancomycin did not get started until yesterday due to a delay at the pharmacy. [facility] Medical History (Updated 04/21/21 @ 14:21 by Crescencio Salinas M.D.) Acute arthritis Acute cervical radiculopathy Asthma CKD (chronic kidney disease) Degenerative joint disease of left hip Diabetes mellitus type 2 in obese Diastolic CHF Gastroesophageal reflux disease In tertriginous candidiasis Mixed hyperlipidemia Osteopenia Seasonal allergic rhinitis Surgical History section Cholecystectomy Status post tonsillectomy Status post tubal ligation Family History Other Asthma Diabetes Heart disease Primary tuberculosis Social History Does the Patient have a Healthcare Proxy: No Does Patient have a DNR?: No Does Patient have a Living Will?: No Hx Recent Travel (where): No Smoking Status: Never smoker alcohol intake: never substance use type: does not use Exam Extrem Other: the redness has faded to a light brown color except at the medial left great toe where it is deep red and very tender. the base of the toes is also quite tender. there is no swelling. Assessment Plan Assessment Plan (1) Cellulitis: Status: Acute Comment: left foot Code(s): L03.90 - Cellulitis, unspecified SNOMED Code(s): 540282485 Category: Medical Plan: the swelling and redness if definitely less and she has less pain with weightbearing, so i think sheis responding to this combination of meds. will recheck in 6 days and cautioned to report any diarrhea to us. Coding Level of Care Code 29772 Est Pt Limited Comp Diagnoses Cellulitis L03.90 Additional Codes Intake - Is patient in pain?: Yes (1125F) <Electronically signed by Crescencio Salinas MD> 04/24/21 1125 Name Value Range Interpretation Code Description Data Casi rce(s) Supporting Document(s) ID Date Data Source [id number] 04/21/2021 01:42:00 PM [facility] Patient Name: SHIRA GATICA : 1950 Sex: F Pt Unit #: [id number] Location:[facility] Provider: Visit Date/Time: 04/21/21 Primary Insurance: MEDICARE [employer] Secondary Insurance: BC/BS [employer] Intake Vital Signs 04/21/21 13:46 BP 138/80 Blood Pressure Location Lt brachial Position Sitting Respiration 18 Pulse 78 Pulse Source Pulse Oximeter Temp 95.7 F L Temp Source Temporal Artery Scan Pulse Oximetry (%) 95 Oxygen Delivery Method room air Intake Visit Reasons: Hospital Discharge Follow-up Nurse Note: 70 year old female here for f/u from ER on 04/17/21 for left foot pain. Is patient in pain?: Yes Allergies aspirin [ASPIRIN] Allergy (Intermediate, Verified 03/17/21 09:34) HIVES influenza virus vaccine, specific Allergy (Intermediate, Verified 03/17/21 09:34) Other, not listed metformin HCl [From Glucophage] Allergy (Intermediate, Verified 03/17/21 09:34) Rash nut - unspecified Allergy (Mild, Verified 03/17/21 09:34) Blisters on body COCONUT Allergy (Unverified 03/17/21 09:34) Vision Wearing glasses?: Yes Fall Risk History of falls: No Ambulatory Aid:: Crutches Cane or Walker HIV Testing Offer - ages 13-64 Requirement for HIV testing offer been met?: Declines today. Pretest education received and acknowledged Coronavirus Screening Screening Are you currently positive or on isolation for COVID ?: No Do you have any NEW signs of one or more of the following?: no symptoms Do you have NEW signs of at least two of the following?: no symptoms HPI Additional HPI HPI Details: see above. on or about 04/13 she scraped the top of her left foot when a door was pushed over it. there was only a very superficial scratch. over the next 3 days the top of the foot became red and swollen. she was seen in the [place] ED on 04/17, xrays were negative and she was given keflex for cellulitis. she has noted very little improvement. she had to use a walker to come in here from her car. [facility] Medical History (Updated 04/21/21 @ 14:21 by Crescencio Salinas M.D.) Acute arthritis Acute cervical radiculopathy Asthma CKD (chronic kidney disease) Degenerative joint disease of left hip Diabetes mellitus type 2 in obese Diastolic CHF Gastroesophageal reflux disease Intertriginous candidiasis Mixed hyperlipidemia Osteopenia Seasonal allergic rhinitis Surgical History section Cholecystectomy Status post tonsillectomy Status post tubal ligation Family History Other Asthma Diabetes Heart disease Primary tuberculosis Social History Does the Patient have a Healthcare Proxy: No Does Patient have a DNR?: No Does Patient have a Living Will?: No Hx Recent Travel (where): No Smoking Status: Never s liliaker alcohol intake: never substance use type: does not use Exam Skin Other: her left foot is warm with a fair dorsalis pedis pulse. the anterior midfoot is slightly red and swollen and near the base of the toes, quite tender. there are no lesions of the skin on any part of the foot. Assessment Plan Assessment Plan (1) Cellulitis: Status: Acute Comment: left foot Code(s): L03.90 - Cellulitis, unspecified SNOMED Code(s): 053916354 Category: Medical Plan: she may not be responding to the keflex due to a resistant organism which she is at risk for with her diabetes. is seems far too tender for a soft tissue injury alone. will switch her to vancomycin and cipro. recheck in 3 days. she will stay off her feet as much as possible. 20 minute visit. Medications: New vancomycin 250 mg PO QID 30 caps 0RF ciprofloxacin HCl 500 mg PO BID 14 tabs 0RF Coding Level of Care Code Estab Pt Lvl 3 (20-29 min) Diagnoses Cellulitis L03.90 Additional Codes Intake - Is patient in pain?: Yes (1125F) <Electronically signed by Crescencio Salinas MD> 04/21/21 1425 Name Value Range Interpretation Code Description Data Casi rce(s) Supporting Document(s) ID Date Data Source [id number] 04/16/2021 10:21:00 AM EDT [facility] 1 OrderSheet [facility] Emergency Department [address] [place] [address] Phone #: [phone] 04/16/2021 10:20 Patient: SHIRA GATICA Sex: F : 1950 Age: 70yWEIGHT:106.5 kg (S) HEIGHT:62 inches (S) BMI:43.0ALLERGIES: Aspirin, NutsCHIEF COMPLAINT: Lt, footDIAGNOSIS: Cellulitis of skin, OsteoarthritisLAB ORDERSOrder Description Priority Entered Acknowledged InitialedDIAGNOSTIC STUDY ORDERSOrder Description Priority Entered Acknowledged InitialedFoot Complete Left STAT 11:01 04/16/2021 Ack'd: 13:01 14:42 Jasmine Reyna(Oxygen?(No)) Samantha Melvin R.N. P.A.-C; R.N. Reason for Study: Cellulitis, Trauma/InjuryHand Complete STAT 11:01 04/16/2021 Ack'd: 13:01 14:42 Lennie Reyna Amber R.N.(Oxygen?(No)) P.A.-C; R.N. Reason for Study: OA vs RA vs otherMEDICATION/IV/DRIP/FLUID ORDERSOrder Description Priority Entered Acknowledged InitialedTylenol 1 g PO X1 13:10 04/16/2021 14:40 Je Reyna: 1000 mg Dain Gauthier R.N.(NOW x1) P.A.-C;Rocephin IM 1000 13:10 04/16/2021 14:41 Jasmine Reynamg Dain Gauthier R.N. P.A.-C;GENERAL ORDERSOrder Description Priority Entered Acknowledged InitialedOrthopedic Shoe 14:39 04/16/2021 14:42 Jasmine Reyna R.N. P.A.-C;[Electronically signed by Jasmine Reyna R.N. (15:54 04/16/2021)][Electronically signed by Dain GauthierASamantha-C (11:38 04/17/2021)] 2 OrderSheet [facility] Emergency Department [address] [place] [address] Phone #: ext- [phone] 04/16/2021 10:20 Patient: SHIRA GATICA Sex: F : 1950 Age: 70y[Electronically locked by Jasmine Reyna R.N. (15:54 04/16/2021)] Name Value Range Interpretation Code Description Data Casi e(s) Supporting Document(s) ID Date Data Source [id number] 04/16/2021 10:21:00 AM EDT [facility] 1 Medication Reconciliation Report [facility] Emergency Department [address] [place] [address] Phone #: ext- [phone] 04/16/2021 10:20 Patient: SHIRA GATICA Sex: F : 1950 Age: 70yWeight: 106.5 kgHeight/Length: 62 in.BMI: 43.0ALLERGIES: Aspirin, NutsThe patient's Home Medications are listed below:THE FOLLOWING MEDICATIONS NEED TO BE RECONCILED: Fluid around heart Levamir for sugar 55 units, every AM Med for fluid retention, Med for high blood pressure Pt unknown of nbames of medication Uses oxygen at nightThe source(s) of the original Home Medication information:Not obtained.The following Medications were given to the patient in the Emergency Department:Tylenol [PO] PO 1000 mg, administered: 14:40 04/16/2021ocephin [IM] IM 1 gm, administered: 14:41 04/16/2021The following Medications were prescribed to the patient:c ephalexin 500 mg capsule Take 1 capsule three times a day for 10 days -- Dispense 30 capsule.Refills: 0. Substitution permitted.Pharmacy - [id number] - [address], [place] [phone]. . -- Dain Gauthier P.A.-C Name Value Range Interpretation Code Description Data Casi rce(s) Supporting Document(s) ID Date Data Source [id number] 04/16/2021 10:21:00 AM EDT [facility] 1 Medication Administration Record [facility] Emergency Department [address] [place] [address] Phone #: ext- [phone] 04/16/2021 10:20 Patient: SHIRA GATICA Sex: F : 1950 Age: 70yWeight: 106.5 kgHeight/Length: 62 inBMI: 43ALLERGIES: Nuts, Aspirin Date/Time Medication Administered Medication OrderedGiven TYLENOL [PO] (APAP) Tylenol 1 g PO X1 dose: 1000 mg14:40 04/16/2021 Dose: 1000 mg Tablets PO (NOW x1)Jasmine Reyna R.N.Given ROCEPHIN [IM] (CEFTRIAXONE Rocephin IM 1000 mg14:41 04/16/2021 SODIUM)Jasmine Reyna R.N. Dose: 1 gm IM Name Value Range Interpretation Code Description Data Casi rce(s) Supporting Document(s) ID Date Data Source [id number] 04/16/2021 10:21:00 AM EDT [facility] 1 General Instructions [facility] Emergency Department [address] [place] [address] Phone #: ext- [phone] 04/16/2021 10:20 Patient: SHIRA GATICA Sex: F : 1950 Age: 70yMild primary osteoarthritis involving the right hand.Cellulitis of the left foot.INSTRUCTIONSApply ice for 10 minutes three times a day for one weeks followed by heat 10 minutes three times a day forone weeks as needed. Don't apply ice directly to skin, don't use while asleep and don't use high setting onheating pad. Wear stiff soled shoe today, for one weeks.No dietary restrictions.(Continue to use walkerRecommend to utilize OTC Tylenol to control inflammation and pain management. Recommend to followthe instructions on the bottle and not to exceed.).Warnings: INFECTION: Watch for signs of infection (increasing heat and redness, pus-like drainage,swelling, or increased pain). Return or see your doctor if these signs occur.GENERAL WARNINGS: Return or contact your physician immediately if your condition worsens orchanges unexpectedly, if not improving as expected, or if other problems arise. Specifically return if pain orfever worsens.Prescription Medications:cephalexin 500 mg capsule Take 1 capsule three times a day for 10 days -- Dispense 30 capsule.Refills: 0. Substitution permitted.Pharmacy - [facility] #[id number] - [address] [facility] ; [place], [place] [phone]. .Follow-up:Return to the emergency department if not better. Follow up with your healthcare provider in two days ifnot better. Call for an appointment.Understanding of the discharge instructions verbalized by patient. ADDITIONAL INFORMATIONOsteoarthritisOsteoarthritis happens when the cartilage in a joint becomes damaged and worn. This may be from 2 General Instructions [facility] Emergency Department [address] [place] [address] Phone #: ext- [phone] 04/16/2021 10:20 Patient: SHIRA GATICA Sex: F : 1950 Age: 70yage, wear and tear, overuse of the joint, obesity, or other problems. Osteoarthritis can affect any joint.But it's most common in hands, knees, spine, hips, and fee t. Symptoms include joint stiffness, andpain. It's also called degenerative joint disease.Home care When a joint is more sore than usual, rest it for a day or two. Heat can help relieve stiffness. Take a hot bath or apply a heating pad for up to 30 minutes at a time. If symptoms are worse in the morning, using heat just after awakening can help relax the muscle and soothe the joints. Ice helps relieve pain. It's often used after activity. Use a cold pack wrapped in a thin cloth on the joint for 10 to 15 minutes at a time. Alternating hot and cold can also help relieve pain. Try this for 20 minutes at a time, several times per day. Exercise helps prevent the muscles and ligaments around the joint from becoming weak. It also helps maintain function in the joint. Be as active as you can. Talk to your healthcare provider about what activity program is best for you. Excess weight puts a lot of extra strain on weight-bearing joints of the lower back, hips, knees, feet and ankles. If you are overweight, talk to your healthcare provider about a safe and effective weight loss program. Use anti-inflammatory medicines as prescribed for pain. This includes acetaminophen or NSAIDs such as ibuprofen or naproxen. Don't take NSAIDs if your healthcare provider has told you that you can't take NSAIDS because of other health problems If needed, topical or injected medicines may be recommended. Talk with your healthcare provider if these options are not enough to manage your pain. Follow the directions on all ewzi-pyo-vyyrxtw medicines. Talk with your healthcare provider about devices that might help improve your function and reduce pain. Talk with you healthcare provider about physical therapy to help strengthen your joints and the surrounding muscles.Follow-up careFollow up with your healthcare provider, or as advised.When to seek medical adviceCall your healthcare provider right away if any of these occur: 3 General Instructions [facility] Emergency Department [address] [place] [address] Phone #: ext- [phone] 04/16/2021 10:20 Patient: SHIRA GATICA Sex: F : 1950 Age: 70y Redness or swelling of a painful joint Discharge or pus from a painful joint Fever of 100.4F (38C) or higher, or as directed by your healthcare provider Worsening joint pain Decreased ability to move the joint or bear weight on the joint [employer]. [address] [place] [address]. All rights reserved. This information is not intended as asubstitute for professional medical care. Always follow your healthcare professional's instructions.CellulitisCellulitis is an infection of the deep layers of skin. A break in the skin, such as a cut or scratch, can letbacteria under the skin. If the bacteria get to deep layers of the skin, it can be serious. If not treated,cellulitis can get into the bloodstream and lymph nodes. The infection can then spread throughout thebody. This causes serious illness.Cellulitis causes the affected skin to become red, swollen, warm, and sore. The reddened areas havea visible border. An open sore may leak fluid (pus). You may have a fever, chills, and pain.Cellulitis is treated with antibiotics taken for 7 to 10 days. An open sore may be cleaned and coveredwith cool wet gauze. Symptoms shou ld get better 1 to 2 days after treatment is started. Make sure totake all the antibiotics for the full number of days until they are gone. Keep taking the medicine even ifyour symptoms go away.Home careFollow these tips: Limit the use of the part of your body with cellulitis. If the infection is on your leg, keep your leg raised while sitting. This helps reduce swelling. Take all of the antibiotic medicine exactly as directed until it is gone. Don't miss any doses, especially during the first 7 days. Don't stop taking the medicine when your symptoms get better. Keep the affected area clean and dry. Wash your hands with soap and clean, running water before and after touching your skin. Anyone else who touches your skin should also wash his or her hands. Don't share towels.Follow-up care 4 General Instructions [facility] Emergency Department [address] [place] [address] Phone #: ext- [phone] 04/16/2021 10:20 Patient: SHIRA GATICA Sex: F : 1950 Age: 70yFollow up with your healthcare provider, or as advised. If your infection doesn't go away on the firstantibiotic, your healthcare provider will prescribe a different one.When to seek medical adviceCall your healthcare provider right away if any of these occur: Red areas that spread Swelling or pain that gets worse Fluid leaking from the skin (pus) Fever higher of 100.4 F (38.0 C) or higher after 2 days on antibiotics [phone] [employer]. [address] [place] [address]. All rights reserved. This information is not intended as asubstitute for professional medical care. Always follow your healthcare professional's instructions. You have been given the following additional inf ormation: Osteoarthritis Cellulitis(Electronically signed by Dain Gauthier P.A.-C 04/17/2021 11:38) Name Value Range Interpretation Code Description Data Casi rce(s) Supporting Document(s) ID Date Data Source [id number] 04/16/2021 10:21:00 AM EDT [facility] 1 Clinical Report - Nurses [facility] Emergency Department [address] [place] [address] Phone #: ext- [phone] 04/16/2021 10:20 Patient: SHIRA GATICA Sex: F : 1950 Age: 70yTRIAGEArrived by EMS, and from home. Historian: patient. ( 3 days ago pt hit left foot on door jam and next daytop of left foot swollen and red and painful unable to bear wt on left foot uses walker).Triage time: 10:17 04/16/2021. Acuity: LEVEL 3.Chief Complaint: LEFT LOWER EXTREMITY PAIN and SWELLING. Location of symptoms- left foot.10:38 04/16/21.Injury occurred. Location of injuries: left foot. Onset. (3 days ago). She has had swelling withtenderness and redness to left foot. She has had redness with tenderness on left foot (3 days ago). Shehas had trouble walking. No fever, difficulty breathing, skin rash, itching or weakness.Treatment MONITORING COORDINATOR:None.SEPSIS SCREEN: SIRS SCREEN NEGATIVE. SEPSIS SCREEN NEGATIVE. No suspected or confirmedsigns of infection present. (10:37 04/16/2021). --10:38 04/16/21 Robi Go RN10:27 04/16/21. BP: 138/70 (regular adult cuff) taken on the left arm, via an automated monitor, whilelying. MAP: 92. HR: 80. RR: 16. O2 saturation: 100% on room air. Temp: 99 F (oral). Pain level now: 01/20.Additional comments: left foot. --10:38 04/16/21 Robi Go RN.Weight: 106.5 kg stated. Height/Length: 62 inches Per Patient. BMI: 43. --10:27 04/16/21 Robi Go RN.MedicationsPt unknown of nbames of medication. --10:32 04/16/21 Robi Go RN Med for fluid retention,. --10:32 04/16/21 Robi Go RN Med for high blood pressure. --10:33 04/16/21 Robi Go RN Fluid around heart. --10:33 04/16/21 Robi Go RN Uses oxygen at night. --10:33 04/16/21 Robi Go RN Levamir for sugar 55 units, every AM. --10:34 04/16/21 Robi Go RN.AllergiesAspirin. --10:34 04/16/21 Robi Go RNNuts. --10:34 04/16/21 Robi Go RN.PROBLEMS:Hypertension.Congestive Heart Failure. --10:35 04/16/21 Rboi Go RN. 2 Clinical Report - Nurses [facility] Emergency Department [address] [place] [address] Phone #: ext- [phone] 04/16/2021 10:20 Patient: SHIRA GATICA Sex: F : 1950 Age: 70y ADDITIONAL SURGERIES: Cholecystectomy. . Tonsillectomy. --10:35 04/16/21 Robi Go RN. History 10:38 04/16/21. PAST MEDICAL HX: Diabetes mellitus. Hypertension. The patient is post-menopausal. SOCIAL HX: Never smoker. No alcohol use or drug use. She was offered HIV testing but declined and hepatitis C testing but declined. She has not traveled outside the [place] Infe ctious disease exposure: No infectious disease exposure. SELF HARM ASSESSMENT: Self harm assessment was performed. The patient answered "no" to the question(s) "Have you recently felt down, depressed, or hopeless?", "Do you have thoughts of harming or killing yourself?", "Do you have a plan for harming or killing yourself?", "Have you recently had thoughts about harming or killing others?", "Do you have any dangerous items in your possession?", "Have you noticed less interest or pleasure in doing things?", "Are you here because you tried to hurt yourself?" and "Have you ever tried to hurt yourself before today?". ABUSE ASSESSMENT: Abuse history: reports abuse. (no). Abuse assessment. No suspicion of abuse. NUTRITIONAL RISK ASSESSMENT: The nutritional risk assessment revealed no deficiencies. FUNCTIONAL ASSESSMENT: Functional assessment: no impairments noted. LEARNING NEEDS ASSESSMENT: The learning needs assessment revealed no barriers. FALL RISK ASSESSMENT: Fall risk assessment completed. Risk factors identified include patient age greater than 65 years. Fall interventions initiated. Patient placed on stretcher. Side rails up x2. Bed in low position. Brakes on. Patient visible from nurses' station. Call light in reach of patient. SKIN INTEGRITY ASSESSMENT: Skin integrity risk assessment completed. No skin integrity risk identified. --10:38 04/16/21 Robi Go RN. Interventions 10:38 04/16/21. Identification band on patient. To room. --10:38 04/16/21 Robi Go RN.PHYSICAL ASSESSMENTTo room via stretcher.GENERAL / NEURO / PSYCH: Alert. Appears in no acute distress.EXTREMITIES: Left foot: tenderness and swelling (top left foot).SKIN: Skin is warm and dry. --10:39 04/16/21 Robi Go RN. 3 Clinical Report - Nurses [facility] Emergency Department [address] [place] [address] Phone #: ext- [phone] 04/16/2021 10:20 Patient: SHIRA GATICA Sex: F : 1950 Age: 70yNURSING PROGRESS NOTESTwo patient identifiers checked. Call light placed in reach. Side rails up x 2. Bed placed in lowestposition. Brakes of bed on. Patient ready for evaluation- chart flagged. --10:39 04/16/21 Robi Go RN 13:53 04/16/21. BP: 129/81. HR: 81. RR: 16. O2 saturation: 98%. --13:53 04/16/21 Chucky Ray 14:40 04/16/2021 Tylenol (APAP) PO Tablets 1000 mg given. Allergies verified and confirmed 5 rights. Information reviewed with patient including reason for taking this medication, signs of allergic reaction and precautions. Verbalizes understanding. --14:41 04/16/21 Jasmine Reyna R.N. 14:41 04/16/2021 Rocephin (cefTRIAXone Sodium) IM 1 gm given. Given in the right deltoid. Allergies verified and confirmed 5 rights. Information reviewed with patient including reason for taking this medication, signs of allergic reaction and precautions. Verbalizes understanding. --14:41 11/4/21 Jasmine Reyna R.N.DISPOSITION / DISCHARGE 15:00 04/16/21. BP: 136/49. MAP: 78. HR: 73. RR: 16. O2 saturation: 98%. Temp: 98.5 F. --15:00 04/16/21 Chucky Ray 15:21 04/16/21. Pain level now 3/10. --15:21 04/16/21 Jasmine Reyna R.N. Condition at departure: improved. No learning barriers present. Discharge instructions provided and reviewed with the patient. Reviewed medication(s) side effects, precautions, dosing and course information. Prescription(s) given to the patient and sent electronically to pharmacy. Patient verbalized understanding. Written instructions provided in Danish. The patient was discharged home and accompanied by family. She left in a wheelchair and via private vehicle. Family member driving. --15:21 04/16/21 Jasmine Reyna R.N.Locked/Released at 04/16/2021 15:54 by Jasmine Reyna R.N. Name Value Range Interpretation Code Description Data Casi rce(s) Supporting Document(s) ID Date Data Source [id number] 04/16/2021 10:21:00 AM EDT [facility] 1 Clinical Report - Physicians/Mid Levels [facility] Emergency Department [address] [place] [address] Phone #: ext- [phone] 04/16/2021 10:20 Patient: SHIRA GATICA Sex: F : 1950 Age: 70y Time Seen: 10:45 04/16/2021; initial patient contact, initial documentation. Arrived- By ambulance. Historian- patient. Disposition decision: 14:45 04/16/2021.HISTORY OF PRESENT ILLNESS Chief Complaint: Injury to left foot. The injury happened about 3 days ago. Occurred at home. The patient sustained a direct blow. Patient is experiencing mild pain. No injury to the head or neck or other injury. (3 days ago pt hit left foot on door jam and next day top of left foot swollen and red and painful unable to bear wt on left foot uses walker Also c/o R hand pain that pops for the last month. Sts that it was swollen then and has gone down, but since she is here figured she would ask.).REVIEW OF SYSTEMSThe patient complains of pain on weight bearing. She has had swelling, and weakness. No tingling,numbness or suspected foreign body. All other systems reviewed and are negative.PAST HISTORYSee nurses notes. Tetanus immunization status is up-to-date. Problems: Diabetes Mellitus. Hypertension. Congestive Heart Failure. Additional Surgeries: Cholecystectomy. . Tonsillectomy. Medications: Levamir for sugar 55 units, every AM. Uses oxygen at night. Fluid around heart. Med for high blood pressure. Med for fluid retention,. Pt unknown of nbames of medication. Allergies: 2 Clinical Report - Physicians/Mid Levels [facility] Emergency Department [address] [place] [address] Phone #: [phone] qrt- [phone] 04/16/2021 10:20 Patient: SHIRA GATICA Sex: F : 1950 Age: 70y Aspirin. Nuts.SOCIAL HISTORYNever smoker. No alcohol use or drug use.ADDITIONAL NOTESThe nursing notes have been reviewed.PHYSICAL EXAMVital Signs: 04/16/2021 10:27 BP: lying 138/70. MAP: 92. HR: 80. RR: 16. O2 saturation: 100% on roomair. Temp: 99 F. Pain level now: 8/10. Have been reviewed. Oxygen saturation normal.Appearance: Alert. Oriented X3. No acute distress.ENT: Voice normal.CVS: Normal heart rate and rhythm. No JVD present. Pulses normal. Capillary refill normal. Strongperipheral pulses. Heart sounds normal. Pulses: right radial 2+; left radial 2+; right dorsalis pedis 2+; leftdorsalis pedis 2+; right posterior tibial 2+; left posterior tibial 2+.Respiratory: Chest normal on inspection. No respiratory distress. Unlabored respirations. Lungs clear.Good chest movement. Breath sounds normal and equal.Skin: Skin warm and dry.Extremities: Right hand: mild tenderness. Neurovascular intact distally. No erythema, swelling, laceration,abrasion or ecchymosis. No puncture wound, foreign body or deformity. Left foot: mild erythema,moderate tenderness and swelling and small abrasion with controlled bleeding of the proximal dorsalaspect of the mid foot. Neurovascular intact distally. No laceration, ecchymosis, puncture wound, foreignbody or deformity. No left hip complaint, right thigh complaints, left thigh complaints, right knee complaintsor left knee complaints. No right leg complaint, right ankle complaints, right foot complaints, left anklecomplaints or right elbow complaints. No right forearm complaints or right wrist complaint. Lowerextremity exam otherwise negative.Neuro, Vascular and Tendons: Vascular status intact. Sensation intact. Motor intact.Gait: Gait not tested due to pain.Neuro: Awake. Alert. Mood/affect normal. Speech normal. No motor deficit. No sensory deficit.Psych: Cognition normal. Thought process and content normal. Insight and judgement normal.LABS, X-RAYS, AND EKGRt Hand X-ray: (Cresencio archer James - 04/16/2021 12:54:21 PMOsteoarthritis third fourth and fifth DIP joints). The X-rays were interpreted by the radiologist.Lt Foot X-ray: (Cresencio archer James - 04/16/2021 12:43:03 PMRADIOGRAPHS OF THE left foot 4 views INDICATION: Cellulitis COMPARISON: [None.] FINDINGS: No soft tissue gas. No bone destruction. 3 Clinical Report - Physicians/Mid [facility] Emergency Department [address] [place] [address] Phone #: ext- [phone] 04/16/2021 10:20 [id number] Sex[facility] F : 1950 Age: 70y [No acute fracture or dislocation.] [No focal bone lesion.] [Joint spaces are well preserved. No marginal osteophytes or erosions.] 8 mm enthesophyte plantar calcaneus at the insertion of the plantar fascia. IMPRESSION: Heel spur. Otherwise negative. No evidence of osteomyelitis.). The X-rays were interpreted by the radiologist.PROGRESS AND PROCEDURESCourse of Care: Enter room and pt lying peacefully in bed in NAD. Patient stable. Denies any newissues, concerns, or complaints. VSS, NAD, AOx3, interacting well and appropriately, no use of accessory muscle, able to speak full sentences, stable, non-toxic looking. Pt p resents via EMS w/ c/o L foot pain x 3 days. Sts injured by door that hit and scraped foot. PE coltonos NV intact b/l LE. Noted erythema, edema and warmth of the L foot compared to the R. ? injury w/ cellulititis. No calf pain or tenderness. no LE edema or erytheam. No CP, SOB, or dsynpena. Pt also c/o of R hand pain x 1 mth. deneis any trauma. Sts that it was swollen, but came down. Sts she believes she was told she may have OA/RA. Figured she would ask as she is here. PE jim NV intact b/l UE. Noted s/s c/w OA of the MTC. No other injuries or tenderness. No edema or eryteham. No wrist pain. SILT. Will obtain imaging for further eval. Reviewed results. Enter room and patient lying and sleeping peacefully in bed in NAD and easily awakened. Patient stable. Denies any new issues, concerns, or complaints. Discussed results with pt. Discussed tx plan with pt. Discussed and counseled on stable condition. Discussed importance of a f/u with PCP. Discussed return to ER criteria. Answered their questions. Indicates and verbalizes that they understand, agree, and will comply with above. Denies any new questions or concerns. Patient has capacity to understand. Discharge decision based on the following: patient's condition is stable; patient's exam is stable; social support is adequate; transportation is available; follow-up is available. Discussed of OTC Motrin and Tylenol to control inflammation and pain management. Informed to follow directions on bottle that are appropriate for age and/or weight. Disposition: Discharged home in good and improved condition. Condition: good and stable. 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 Cellulitis of the left foot.INSTRUCTIONS Apply ice for 10 minutes three times a day for one weeks followed by heat 10 minutes three times a day for one weeks as needed. Don't apply ice directly to skin, don't use while asleep and don't use high setting on heating pad. Wear stiff soled shoe today, for one weeks. No dietary restrictions. (Continue to use walker Recommend to utilize OTC Tylenol to control inflammation and pain management. Recommend to follow the instructions on the bottle and not to exceed.). Warnings: INFECTION: Watch for signs of infection (increasing heat and redness, pus-like drainage, swelling, or increased pain). Return or see your doctor if these signs occur. GENERAL WARNINGS: Return or contact your physician immediately if your condition worsens or changes unexpectedly, if not improving as expected, or if other problems arise. Specifically return if pain or fever worsens. Prescription Medications: cephalexin 500 mg capsule Take 1 capsule three times a day for 10 days -- Dispense 30 capsule. Refills: 0. Substitution permitted. Pharmacy - [id number] - [address], [place] [id number]. . Follow-up: Return to the emergency department if not better. Follow up with your healthcare provider in two days if not better. Call for an appointment. Understanding of the discharge instructions verbalized by patient.(Electronically signed by Dain Gauthier P.A.-C 04/17/2021 11:38) Name Value Range Interpretation Code Description Data Casi rce(s) Supporting Document(s) ID Date Data Source [id number] 04/16/2021 01:37:00 PM EDT [facility] [address] [place] [address] PHONE: [phone] FAX: [phone] Name .................. : JOSEOSVALDO Kraus Acct Number.................. : [id number] ROOM. ................. : TR-06 Number ................... : [id number] Stay type ............. : E/R Discharge Date......... ... : Admit Date ......... : 04/16/21 Admit Phys .................... : [facility] Date of ....... : 1950 Family Phys ................... : Phone .................. : [phone] Age ................................ : 70 Film# .................. .:[id number] Sex ................................. : F Unsigned transcriptions are preliminary reports and do not represent a medical or legal document HAND COMPLETE-3 OR MORE VWS R [id number] COMPLETE:04/16/21 11:01 [id number] Reason(s): OA vs RA vs other RADIOGRAPHS OF THE RIGHT HAND 4 VIEWS INDICATION: Pain. Osteoarthritis versus rheumatoid arthritis COMPARISON: None. FINDINGS: No acute fracture or dislocation. No focal bone lesion. The bones are diffusely mildly osteopenic. There is moderate joint space narrowing and marginal osteophytes in the DIP joints of the third fourth and fifth fingers. Other joint spaces are well-prese rved. No marginal erosions. No significant soft tissue abnormality. IMPRESSION: Moderate arthritis involving the third fourth and fifth DIP joints. Appearance is most consistent with osteoarthritis. Electronically Reviewed and Signed By Grant Dupont MD , 04/16/21 13:37, JWElena Transcribe Initials: SSR, Transcribe Date: 04/16/21 13:04, Dictation Date: Copy for: 010 EMERGENCY SRV Copy for: [facility] via fax Copy for: EMERGENCY DEPT via modem Copy for: 710 MED REC Page 1 of 1 Name Value Range Interpretation Code Description Data Casi rce(s) Supporting Document(s) ID Date Data Source [id number] 04/16/2021 01:36:00 [place] [address] PHONE: [phone] FAX: [phone] Name .................. : BRODIE Kraus Acct Number.................. : [id number] ROOM. ................. : TR-06 Number ................... : [id number] Stay type ............. : E/R Discharge Date......... ... : Admit Date ......... : 04/16/21 Admit Phys .................... : [facility] Date of ....... : 1950 Family Phys ................... : Phone .................. : [phone] Age ................................ : 70 Film# .................. .:[id number] Sex ................................. : F Unsigned transcriptions are preliminary reports and do not represent a medical or legal document FOOT COMPLETE-3 OR MORE [facility] [id number] COMPLETE:04/16/21 11:01 [id number] Reason(s): Cellulitis RADIOGRAPHS OF THE LEFT FOOT 4 VIEWS INDICATION: Cellulitis COMPARISON: None. FINDINGS: No soft tissue gas. No bone destruction. No acute fracture or dislocation. No focal bone lesion. Joint spaces are well preserved. No marginal osteophytes or erosions. 8 mm enthesophyte plantar calcaneus at the insertion of the plantar fascia. IMPRESSION: Heel spur. Otherwise negative. No evidence of osteomyelitis. Electronically Reviewed and Signed By Grant Dupont MD , 04/16/21 13:36, JWElena Transcribe Initials: EMERITA, Transcribe Date: 04/16/21 13:03, Dictation Date: Copy for: 010 EMERGENCY SRV Copy for: [facility] via fax Copy for: EMERGENCY DEPT via modem Copy for: 710 MED REC Page 1 of 1 Name Value Range Interpretation Code Description Data Casi rce(s) Supporting Document(s) ID Date Data Source [id number] 04/07/2021 12:01:00 PM EDT [facility] Wale Stefanie is a rapid, automated qualita tive anddifferentiation of Influenza type A,B AND SARS KUR-2SZBG-PD-PCR testNORMAL VALUE IS "NOT DETECTED".Limitations of the wale stefanie Influenza A/B & UOXX-XII-5ogdqz method.Modifications to manufacturers recommendation and proceduresmay alter performance of the test.Negative results do not preclude Influenza A,B or UDKR-KGF-6xqgtxaytsw and should not be used as the sole basis fortreatment or other management decisions. Results from theCobas Stefanie Influenza A/B & SARS-COV-2 should be interpretedin conjunction with other laboratory and clini karen dataavailable to the clinician.False negative results may occur if a specimen is improperlycollected, transported or handled. False negatives may occurif inadequate numbers of organisms are present in thespecimen.This test has not been evaluated for patients without signsand systoms of influenza and SARS-COV-2 infection.This assay has not been evaluated for patients receivingintranasal administered influenza vaccine.This assay has not been evaluated for immunocompromisedindividuals.This test cannot rule out diseases caused by other bacterialor viral pathogens.SARS-rel CoV RNA Resp Ql ARASELI+probeFL UAV RNA Resp Ql ARASELI+probeFLUBV RNA Resp Ql ARASELI+probe Name Value Range Interpretation Code Description Data Casi rce(s) Supporting Document(s) ID Date Data Source [id number] 03/24/2021 08:17:00 AM EDT [facility] Patient Name: SHIRA GATICA : 1950 Sex: F Pt Unit #: [id number] Location:[facility] Provider: Visit Date/Time: 03/24/21 Primary Insurance: MEDICARE [facility] Secondary Insurance: BC/BS [employer] Intake Vital Signs 03/24/21 08:21 BP 122/80 Blood Pressure Location Lt brachial Position Sitting Respiration 18 Pulse 63 Pulse Source Pulse Oximeter Temp 97.3 F L Temp Source Temporal Artery Scan Pulse Oximetry (%) 97 Oxygen Delivery Method room air Intake Visit Reasons: Arthritis Nurse Note: 70 year old here for right wrist pain. Pt states swelling is down but pain remains. Is patient in pain?: Yes Allergies aspirin [ASPIRIN] Allergy (Intermediate, Verified 03/17/21 09:34) HIVES influenza virus vaccine, specific Allergy (Intermediate, Verified 03/17/21 09:34) Other, not listed metformin HCl [From Glucophage] Allergy (Intermediate, Verified 03/17/21 09:34) Rash nut - unspecified Allergy (Mild, Verified 03/17/21 09:34) Blisters on body COCONUT Allergy (Unverified 03/17/21 09:34) Vision Wearing glasses?: Yes HIV Testing Offer - ages 13-64 Requirement for HIV testing offer been met?: Declines today. Pretest education received and acknowledged Hep C Testing Offered: No Coronavirus Screening Screening Are you currently positive or on isolation for COVID ?: No Do you have any NEW signs of one or more of the following?: no symptoms Do you have NEW signs of at least two of the following?: no symptoms HPI Additional HPI HPI Details: see above. the swelling is gone, but she still has trouble with range of motion of the right 3rd finger. her pain is down from an 8 to a 5. 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 Rheumatoid arthritis* History of Present Illness Current symptoms: Reports arthralgias, stiffness and limited range of motion PFSH Medical History Acute cervical radiculopathy Asthma CKD (chronic kidney disease) Degenerative joint disease of left hip Diabetes mellitus type 2 in obese Diastolic CHF Gastroesophageal reflux disease Intertriginous candidiasis Mixed hyperlipidemia Osteopenia Seasonal allergic rhinitis Surgical History section Cholecystectomy Status post tonsillectomy Status post tubal ligation Family History Other Asthma Diabetes Heart disease Primary tuberculosis Social History Does the Patient have a Healthcare Proxy: No Does Patient have a DNR?: No Does Patient have a Living Will?: No Hx Recent Travel (where): No Smoking Status: Never smoker alcohol intake: never substance use type: does not use Review of Systems Musc Denies myalgias, Denies de formity, Reports arthralgias, Denies joint swelling, Reports limited rangeof motion, Denies numbness, Denies radiating pain into limb, Reports stiffness and Denies tingling Neuro Denies numbness and Denies tingling Exam Const General: cooperative, comfortable and no acute distress Nutritional Appearance: obese Musc Other: only the right 3rd phalanges and metacarpal are now tender. she has only 50% of flexion at the IP joints. the wrist is slightly tender medially. Assessment Plan Assessment Plan (1) Acute arthritis: Status: Acute Code(s): M19.90 - Unspecified osteoarthritis, unspecified site SNOMED Code(s): 22821419 Category: Medical Plan: she is responding fairly well to the prednisone as she did the last time. will keep the dose at 40 mg until there is more improvement in pain and range of motion. she will call in 3 days with an update. Medications: New prednisone 40 mg (4 x 10 mg) PO QDAY 30 tabs 1RF Coding Level of Care Code 94599 Est Pt Intermediate Comp Diagnoses Acute arthritis M19.90 Additional Codes Intake - Is patient in pain?: Yes (1125F) <Electronically signed by Crescencio Salinas MD> 03/24/21 0839 Name Value Range Interpretation Code Description Data Casi rce(s) Supporting Document(s) ID Date Data Source [id number] 03/19/2021 03:26:00 PM EDT [facility] Patient Name: SHIRA GATICA : 1950 Sex: F Pt Unit #: [id number] Location:[facility] Provider: Visit Date/Time: 03/19/21 Primary Insurance: MEDICARE [employer] Secondary Insurance: BC/BS [employer] Intake Vital Signs 03/19/21 15:29 BP 132/70 Blood Pressure Location Lt brachial Position Sitting Respiration 18 Pulse 77 Pulse Source Pulse Oximeter Temp 96.6 F L Temp Source Temporal Artery Scan Pulse Oximetry (%) 97 Oxygen Delivery Method room air Intake Visit Reasons: Hospital Discharge Follow-up Nurse Note: 70 year old female here for f/u from E/R visit 03/14 for right hand pain. Is patient in pain?: Yes Allergies aspirin [ASPIRIN] Allergy (Intermediate, Verified 03/17/21 09:34) HIVES influenza virus vaccine, specific Allergy (Intermediate, Verified 03/17/21 09:34) Other, not listed metformin HCl [From Glucophage] Allergy (Intermediate, Verified 03/17/21 09:34) Rash nut - unspecified Allergy (Mild, Verified 03/17/21 09:34) Blisters on body COCONUT Allergy (Unverified 03/17/21 09:34) Vision Wearing glasses?: Yes HIV Testing Offer - ages 13-64 Requirement for HIV testing offer been met?: Declines today. Pretest education received and acknowledged Hep C Testing Offered: No Coronavirus Screening Screening Are you currently positive or on isolation for COVID ?: No Do you have any NEW signs of one or more of the following?: no symptoms Do you have NEW signs of at least two of the following?: no symptoms HPI Additional HPI HPI Details: she was seen in the ED 3 days ago with painful swelling in the right wrist and hand in the absence of injury. gout was diagnosed though she has never had it and the colchicine has not helped the pain. she had a similar problem 6 months ago that was presumed to be osteoarthritis and it responded well to prednisone. [facility] Medical History Acute cervical radiculopathy Asthma CKD (chronic kidney disease) Degenerative joint disease of left hip Diabetes mellitus type 2 in obese Diastolic CHF Gastroesophageal reflux disease Intertriginous candidiasis Mixed hyperlipidemia Osteopenia Seasonal allergic rhinitis Surgical History section Cholecystectomy Status post tonsillectomy Status post tubal ligation Family History Other Asthma Diabetes Heart disease Primary tuberculosis Social History Does the Patient have a Healthcare Proxy: No Does Patient have a DNR?: No Does Patient have a Living Will?: No Hx Recent Travel (where): No Smoking Status: Never smoker alcohol intake: never substance use type: does not use Exam Musc Other: the right middle finger is most affected with redness and moderate swelling. it is very tender as is the wrist. Assessment Plan Assessment Plan (1) Hospital discharge follow-up: Code(s): Z09 - Encounter for follow-up examination after completed treatment for conditions other than malignant neoplasm Plan: she has an acute arthritis of the right hand and i doubt it is gout. will stop the colchicine and start prednisone. recheck in 4-5 days. Medications: New prednisone 40 mg (2 x 20 mg) PO QDAY 14 tabs 0RF Coding Level of Care Code 99979 Est Pt Limited Comp Diagnoses Hospital discharge follow-up Z09 Additional Codes Intake - Is patient in pain?: Yes (1125F) <Electronically signed by Crescencio Salinas MD> 03/19/21 1546 Name Value Range Interpretation Code Description Data Casi rce(s) Supporting Document(s) ID Date Data Source [id number] 03/17/2021 10:05:00 AM EDT [facility] ED Physician Documentation NAME: SHIRA GATICA : 1950 AGE: 70 MR#: [id number] SERVICE DATE: 03/17/[address]: Jose Waters MD PRIMARY CARE DR: Crescencio Salinas M.D. ROOM#: Musculoskeletal General Chief Complaint: Musculoskeletal Stated Complaint: HAND PAIN Time Seen by Provider: 03/17/21 09:33 History of present illness HPI Narrative:: Patient is a 70-year-old white female who presents with a chief complaint of severe right hand pain which began yesterday. This is so exquisitely painful that she is not been able to sleep and as I enter the room she is cradling the right hand with the left. It is warm to the touch. 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 She does havesome chronic renal failure and diabetes that she notes to. As I get her to remember she had a flareup of something very similar in the same place in September and it came and went. She also noticedthat she had some low-grade back pain that occurred several days ago which preceded the wrist pain. She denies any fevers. She does record how the pain radiates up into the elbow also. She has no personal history of gout in the past. Her past medical history is significant for diabetes congestive heart failure and chronic renal failure. Location of complaint:: right arm Mechanism of injury:: denies injury, no obvious deformity. Palpable radial pulse. Redness?: No Deformity?: No Swelling?: No Ecchymosis?: No Shortening of limb?: No Distal Rotation:: No rotation Distal CMS intact?: Yes Open Fracture?: No Ambulation Assistive Devices: None Gait steady?: Yes Ambulation Comments: USED W/C TO BRING PT TO ROOM Weight Bearing Status: Full Weight Bearing Limited ROM?: Yes Numbness or tingling?: No Allergies/Home Meds Allergies Allergy/AdvReac Type Severity Reaction Status Date / Time aspirin [ASPIRIN] Allergy Intermediate HIVES Verified 03/17/21 09:34 influenza virus vaccine, Allergy Intermediate Other, not Verified 03/17/21 09:34 specific listed metformin HCl Allergy Intermediate Rash Verified 03/17/21 09:34 [From Glucophage] nut - unspecified Allergy Mild Blisters Verified 03/17/21 09:34 on body COCONUT Allergy Unverified 03/17/21 09:34 Home Medications Medication Instructions Recorded Confirmed Last Taken Type multivitamin with minerals (Charanjit 1 ea PO DAILY tab 01/23/15 07/21/20 08/29/19 History Multivitamin with Mineral) fluticasone propionate 50 2 spry NS DAILY #1 bot 08/05/16 07/21/20 08/29/19 History mcg/actuation nasal spray,suspension (Flonase Allergy Relief) albuterol sulfate 2.5 mg (3 mL) IH Q4H PRN #30 ml 03/23/19 07/21/20 08/28/19 Rx albuterol sulfate 90 mcg/actuation 2 puffs IH Q4H PRN #6.7 gm 03/23/19 07/21/20 08/29/19 Rx aerosol inhaler pravastatin 20 mg tablet 20 mg PO DAILY #90 tab 06/26/19 07/21/20 08/30/19 Rx (Pravachol) torsemide 10 mg tablet 10 mg PO QDAY 06/26/19 07/21/20 08/30/19 History torsemide 5 mg tablet 5 mg PO QDAY 06/26/19 07/21/20 08/29/19 History spironolactone 25 mg tablet 12.5 mg PO QDAY tab 01/08/20 07/21/20 Unknown History pen needle, diabetic 31 gauge x #100 ea 03/11/20 07/21/20 Unknown Rx 5/16" (Pen Needle) lisinopril 10 mg tablet 5 mg PO DAILY tab 09/22/20 Unknown History fluconazole 150 mg tablet 150 mg PO QWEEK #12 tab 01/15/21 Unknown Rx insulin detemir U-100 100 unit/mL 55 unit (0.55 mL) SUBCUT QDAY #18 01/15/21 Unknown Rx (3 mL) subcutaneous pen (Levemir device FlexTouch U-100 Insulin) lisinopril 5 mg tablet 5 mg PO QDAY 03/09/21 Unknown History colchicine 0.6 mg tablet 0.6 mg PO BID #10 tab 03/17/21 Unknown Rx PMH (from Triage) Patient Medical History PMH Reviewed/Updated as Needed: Yes PMH/PSH from Triage: Medical History (Updated 03/09/21 @ 08:33 by Crescencio Salinas M.D.) Acute cervical radiculopathy (Medical) M54.12 Asthma (Medical) CKD (chronic kidney disease) (Medical) N18.9 stage 3, referred to dr castelan 04/2020 Degenerative joint disease of left hip (Medical) M16.12 Diabetes mellitus type 2 in obese (Medical) E11.69, E66.9 Diastolic CHF (Medical) I50.30 class 2, dr hernandez Gastroesophageal reflux disease (Medical) Intertriginous candidiasis (Medical) B37.2 recurrent Mixed hyperlipidemia (Medical) E78.2 Osteopenia (Medical) M85.80 dexa 2016 Seasonal allergic rhinitis (Medical) Surgical History (Updated 12/05/18 @ 11:53 by Pushkart ID) section (Surgical) 2 Cholecystectomy (Surgical) 1972 Status post tonsillectomy (Surgical) 1957 Status post tubal ligation (Surgical) Hx Drug Resistant Infections Hx MRSA: (Methicillin-resistant Staphylococcus aureus): No Hx VRE (Vancomycin- resistant enterococci): No Hx C.Diff: No Hx CRKP: No Hx Other Resistant Infection?: No Isolation: Standard precautions Hx Recent Travel Out of the country within 10 days (where): No Hx Fever: No Hx Fever with a rash?: No Nurse screening for coronavirus: Recent Travel outside the No country (where) Social History Does patient have suicidal/homicidal thoughts or ideation?: No Are you in a relationship with/Does anyone hit you, yell/swear at you, steal from you?: No Substance Use Hx Alcohol Use: No Hx Substance Use: No Hx Substance Use Treatment: No Second Hand Smoke Exposure: No Smoking Status: Never smoker Tobacco Use Hx Chewing Tobacco Use: No Vaccination History Hx/Date of Tetanus, Diphtheria Vaccination: No Hx/Date of Influenza Vaccination: No Hx/Date of Pneumococcal Vaccination: No Immunizations Up to Date: No ROS Review of Systems ROS Narrative: Severe right wrist and elbow pain Constitutional: Denies fever Eyes: Denies vision change, eye discharge/drng or redness ENT: Denies mouth pain or mouth swelling Respiratory: Denies cough, sputum, SOB w/exertion rest, SOB with excertion, SOB at rest or wheezing Cardiovascular: Denies chest pain or palpitations Gastrointestinal: Reports No Symptoms/Complaints; Denies nausea, vomiting or abdominal pain Musculoskeletal: Reports arm pain and joint pain; Denies neck pain, shoulder pain or muscle weakness Skin/Breasts: Denies rash or lesions Neurologic: Denies weakness, numbness or headache Psychiatric: Reports No Symptoms/Complaints Endocrine: Reports No Symptoms/Complaints Hematological/Lymphatic: Reports No Symptoms/Complaints Allergic/Immunologic: Reports No Symptoms/Complaints PFSH Medical History Acute cervical radiculopathy Asthma CKD (chronic kidney disease) Degenerative joint disease of left hip Diabetes mellitus type 2 in obese Diastolic CHF Gastroesophageal reflux disease Intertriginous candidiasis Mixed hyperlipidemia Osteopenia Seasonal allergic rhinitis Surgical History section Cholecystectomy Status post tonsillectomy Status post tubal ligation Family History Other Asthma Diabetes Heart disease Primary tuberculosis Social History Does the Patient have a Healthcare Proxy: No Does Patient have a DNR?: No Does Patient have a Living Will?: No Hx Recent Travel (where): No Smoking Status: Never smoker alcohol intake: never substance use type: does not use Physical Exam General Physical Exam Narrative: Obese white female no acute distress except for her right wrist which she is holding cradled by the contralateral side. Is warm to touch. She has a positive test for de Quervain's tendinitis. Thereis no fluid palpable within the wrist. She has elements of lateral epicondylitis by palpation. Otherwise there is no redness no streaking and she can extend and flex the hand and fingers without difficulty. Limitations: no limitations Head Head exam: Present atraumatic and normocephalic Eye Eye exam: Present normal apperance, PERRL and EOMI; Absent scleral icterus or conjunctival injection Pupils: Present normal accomm odation ENT ENT exam: Present normal exam and normal orophraynx Neck Neck exam: Present normal inspection and full ROM; Absent tenderness or meningismus Respiratory Respiratory exam: Present normal lung sounds bilaterally; Absent respiratory distress, wheezes, rales, rhonchi or chest wall tenderness Cardiovascular Cardiovascular Exam: Present regular rate, normal rhythm, normal heart sounds and no murmur GI/Abdominal GI/Abdominal exam: Present Abd soft, bowel sounds present all quadrents, soft and normal bowel sounds; Absent distended or tenderness Rectal Rectal exam: Present deferred Extremities Exam Extremities exam: Present full ROM, tenderness and capillary refill brisk; Absent pedal edema or calf tenderness Back Exam Back exam: Present normal inspection and full ROM Neurological Exam Neurological exam: Present alert, oriented X3, CN II-XII intact and normal gait Psychiatric Psychiatric exam: Present normal affect Skin Skin exam: Present warm, dry and intact; Absent pet echiae Vital Signs Vital Signs: Vital Signs 03/17/21 09:09 Temperature 96.8 F L Pulse Rate 77 Respiratory Rate 16 Blood Pressure 157/103 O2 Sat by Pulse Oximetry 98 MDM (comprehensive) Lab Data Labs: 03/17/21 09:58 03/17/21 09:58 Laboratory Results Last 24 hours 03/17/21 09:58: WBC 8.0, RBC 3.95 L, Hgb 12.4, Hct 37.1, MCV 94, MCH 31, MCHC 33, RDW 13, Plt Count 180, MPV 10.6, Immature Gran % (Auto) 0.1, Neut % (Auto) 71.5, Lymph % (Auto) 16.5, Andrews % (Auto) 9.8, Eos % (Auto) 1.6, Baso % (Auto) 0.5, Lymph # (Auto) 1.3, Abs Immat Gran (auto) 0.0, Add Manual Diff No, Absolute Neutrophils 5.7, Monocytes # 0.8, Absolute Eosinophils 0.1, Absolute Basophils 0.0, ESR 20 03/17/21 09:58: Uric Acid 6.8 03/17/21 09:58: Sodium 138, Potassium 3.9, Chloride 103, Carbon Dioxide 25, Anion Gap 14, BUN 15, Creatinine 1.1, GFR Calculation 49, Glucose 316 H, Calcium 9.1, Total Bilirubin 1.6 H, AST 24, ALT 19, Alkaline Phosphatase 78, Serum Total Protein 7.7, Albumin 2.9 L Medical Decision Making Free Text/Narative:: Given her chronic renal failure this is most likely to be pseudogout or gout. I do not think I could support the diagnosis of an overuse syndrome such as de Quervain's tendinitis based on the fact that her work volume has not changed at all. The fact that it flared up in September went away andnow came back spontaneously I think goes more to pseudogout. Her x-rays do show some calcified cartilage to support this idea. Because of her chronic renal failure and recent episode of back pain she will have a CBC CMP uric acid and we will empirically treat her with colchicine and hopefully this will make some difference during the time that she is here. Further decisions will be made. I think treatment with colchicine or prednisone will be warranted due to her chronic renalfailure and her desire to avoid anti-inflammatories. Reevaluate after laboratory studies are back. 1010////1108 I think she has pseudogout. She has calcified cartilage on her x-ray. Her uric acid creatinine apparently normal. She is markedly better after a single colchicine. Because she has diabetes we will write her for colchicine 0.6 mg 3 times daily for 3 days with refills and follow-upas needed. Plan Visit Medications Administered ED medications:: Medications Discontinued Medications Generic Name Dose Route Start Last Admin Trade Name Freq PRN Reason Stop Dose Admin Colchicine 0.6 mg 03/17/21 10:00 03/17/21 10:10 Colchicine 0.6 Mg Tablet PO 0.6 mg DAILY ARTHUR Administration Discharge Plan Admission/Discharge Dx Primary DC Diagnosis: Pseudogout, right wrist ED Provider: Jose Waters ED Status: Discharged Time Seen by Provider: 03/17/21 09:33 Triaged At: 03/17/21 09:09 Discharge Detail Disposition: Home, Self-Care Med Rec New Prescriptions: New colchicine 0.6 mg tablet 0.6 mg PO BID Qty: 10 1RF No Action albuterol sulfate 2.5 mg /3 mL (0.083 %) solution for nebulization 2.5 mg IH Q4H PRN (Reason: shortness of breath or wheezing) Qty: 30 1RF albuterol sulfate 90 mcg/actuation HFA aerosol inhaler 2 puffs IH Q4H PRN (Reason: shortness of breath or wheezing) Qty: 6.7 1RF torsemide 10 mg tablet 10 mg PO QDAY 0RF Label Comments: tuesday,, sat, sun to rsemide 5 mg tablet 5 mg PO QDAY 0RF Rx Instructions: tue, tue, tue pravastatin [Pravachol] 20 mg tablet 20 mg PO DAILY Qty: 90 2RF spironolactone 25 mg tablet 12.5 mg PO QDAY 0RF lisinopril 5 mg tablet 5 mg PO QDAY 0RF lisinopril 10 mg tablet 5 mg PO DAILY 0RF multivitamin with minerals [Charanjit Multivitamin with Mineral] 1 EACH tablet 1 ea PO DAILY 0RF fluticasone propionate [Flonase Allergy Relief] 9.9 ML spray,suspension 2 spry NS DAILY Qty: 1 5RF (DME) pen needle, diabetic [Pen Needle] 31 gauge x 5/16" needle 1 ea MISCELLANEOUS DAILY Qty: 100 3RF Rx Instructions: as directed Levemir FlexTouch U-100 Insuln 100 unit/mL (3 mL) insulin pen 55 unit subcut QDAY Qty: 18 3RF fluconazole 150 mg tablet 150 mg PO QWEEK Qty: 12 3RF Forms Forms Work Release: Work/School/Activ/Gym Release Follow Up Care/Instructions Diet/Activity/Wound Care..: Today we diagnosed you with pseudogout of the right wrist. This is based on calcifications of the cartilage in the wrist on the x- rays and your response to colchicine which is excellent. Please usecolchicine 0.6 mg twice a day for up to 5 days. A wrist splint was given to also. You may return to work on Tuesday with no restrictions. Please follow-up with your doctor as regularly planned and return to the emergency room if your pain worsens. *Discharge Patient* Discharge Orders: Discharge Order (Routine); Ordered 03/17/21 Ordered By: Jose Waters Discharge Date/Time: 03/17/21 11:49 Interventions Interventions: ED Discharge Instructions Last Done: 03/17/21 11:49 ED Musculoskeletal Last Done: 03/17/21 09:21 Report Signers: <Electronically signed by Jose Waters MD> Jose Waters MD 03/17/212123 Jose Waters MD SIGNATURE DA Report Cosigners: D: KEN 03/17/211004 T: KEN 03/17/211004 CC: Crescencio Salinas M.D. Name Value Range Interpretation Code Description Data Casi rce(s) Supporting Document(s) ID Date Data Source [id number] 03/17/2021 10:04:00 AM EDT [facility] [address] [id number] [phone] NAME SEX PT STATUS ACCOUNT NUMBER SHIRA GATICA [facility] ER [id number] ORDERING PHYSICIAN LOCATION MEDICAL RECORD NO. Jose Waters MD ER [id number] ATTENDING PHYSICIAN DATE OF DATE OF EXAM/TIME Crescencio Salinas MD 1950 03/17/21957 TYPE / EXAM Xray Wrist complete RT REASON FOR EXAM hand wrsit pain Clinical History/Indication for Exam: hand wrsit pain RADIOGRAPHS OF THE RIGHT WRIST 2 VIEWS INDICATION: hand wrsit pain COMPARISON: Right hand 09/22/2020 FINDINGS: Bones/joints: There is no acute fracture or dislocation in the right wrist joint. Calcifications are noted in the right wrist joint. Soft tissues: Mild soft tissue swelling. No radiopaque foreign body. IMPRESSION: 1. No acute fracture or dislocation in the right wrist. 2. Mild degenerative osteoarthritic changes. REPORT SIGNATURE ON FILE 03/17/2021 (10:04 Eastern Time ) Signed by: Chaz Meyers M.D. Reported By Chaz Meyers MD on 03/17/211003 Signed By Chza Meyers MD on 03/17/211003 Date Time CC: Crescencio Salinas M.D.; Chaz Meyers MD Techn: SPANI Trans Dt/Tm: Trans by: DT Prt Dt/Tm: [id number]: Total DLP = 0.00 mGy-cm Fluoroscopy Time (in secs): Name Value Range Interpretation Code Description Data Casi rce(s) Supporting Document(s) ID Date Data Source [id number] 03/17/2021 10:50:00 AM EDT [facility] Name Value Range Interpretation Code Description Data Casi rce(s) Supporting Document(s) Urate [Mass/volume] in Serum or Plasma 6.8 mg/dL 3.3-8.8 N [facility] ID Date Data Source [id number] 03/17/2021 10:51:00 AM EDT [facility] Name Value Range Interpretation Code Description Data Casi rce(s) Supporting Document(s) Leukocytes [#/volume] in Blood by Automated count 8.0 10*3/uL 4.45-10 .71 N [facility] Erythrocytes [#/volume] in Blood by Automated count 3.95 10*6/uL 4.20-5.40 Below low normal [facility] Hemoglobin [Moles/volume] in Blood 12.4 g/dL 10.7-15.4 [facility] Hematocrit [Volume Fraction] of Blood by Automated count 37.1 % 3 7-47 N [facility] Erythrocyte mean corpuscular volume [Ent itic volume] in Cord blood by Automated count 94 fL 80-96 N [facility] ital Erythrocyte mean corpuscular hemoglobin [Entitic mass] by Au tomated count 31 pg 27-31 N [facility] Erythrocyte mean corpuscular hemoglobin concentration [Mass/volume] in Cord blood 33 g/dL 33-37 N [facility] ital Erythrocyte distribution width [Entitic volume] by Automated count 13 % 11-15 N [facility] Platelets [#/volume] in Blood by Automated count 180 10*3/uL 130-472 N [facility] Platelet mean volume [Entitic volume] in Blood 10.6 fL 9.1-13.1 N [facility] Neutrophils/100 leukocytes in Blood by Automated count 71.5 % 41- 77 N [facility] Neutrophils [#/volume] in Blood by Automated count 5.7 U 1.7-7.6 N [facility] Lymphocytes/100 leukocytes in Blood by Automated count 16.5 % 14- 46 N [facility] Lymphocytes [#/volume] in Blood by Automated count 1.3 U 0.6-4.6 N [facility] Monocytes/100 leukocytes in Blood by Automated count 9.8 % 4-12 N [facility] Monocytes [#/volume] in Blood by Automated count 0.8 U 0.2-1.2 N [facility] Eosinophils/100 leukocytes in Blood by Automated count 1.6 % 0-7 N [facility] Eosinophils [#/volume] in Blood by Automated count 0.1 U 0.0-0.5 N [facility] Basophils/100 leukocytes in Blood by Automated count 0.5 % 0.4-1 .3 N [facility] Basophils [#/volume] in Blood by Automated count 0.0 U 0.0-0.2 N [facility] NUCLEATED RED BLOOD CELL 0 % [facility] NUCLEATED RED BLOOD CELL# 0 U [facility] Immature granulocytes [Presence] in Blood by Automated count 0-2 N [facility] Immature granulocytes [#/volume] in Blood by Automated count 0.0 U 0-0.1 N [facility] Manual Differential panel - Blood NO [facility] ID Date Data Source [id number] 03/17/2021 10:51:00 AM EDT [facility] Name Value Range Interpretation Code Description Data Casi rce(s) Supporting Document(s) Erythrocyte sedimentation rate by Westergren method 20 mm/hr 0-30 N [facility] @Reenter manual test result: 20@by Sharon Grayson at 03/17/21 1004. ID Date Data Source [id number] 03/17/2021 10:25:00 AM T [facility] Name Value Range Interpretation Code Description Data Casi rce(s) Supporting Document(s) Urea nitrogen [Mass/volume] in Serum or Plasma 15 mg/dL 9-23 N [facility] Sodium [Moles/volume] in Serum or Plasma 138 mmol/L 132-146 N [facility] Potassium [Moles/volume] in Serum or Plasma 3.9 mmol/L 3.5-5.5 N [facility] Chloride [Moles/volume] in Serum or Plasma 103 mmol/L 99-109 N [facility] Carbon dioxide, total [Moles/volume] in Serum or Plasma 25 mmol/L 20 -31 N [facility] Anion gap in Serum or Plasma 14 mmol/L 8-16 N [facility] Glucose [Mass/volume] in Serum or Plasma 316 mg/dL 74-106 Above high normal [facility] Creatinine 1.1 mg/dL 0.5-1.1 [facility] Glomerular filtration rate/1.73 sq M.pre dicted [Volume Rate/Area] in Serum or Plasma 49 ml/min ABOVE 60 [facility] ital Alanine aminotransferase [Enzymatic acti vity/volume] in Serum or Plasma by With P-5'-P 19 U/L 10-49 [facility] ital Aspartate aminotransferase [Enzymatic ac tivity/volume] in Serum or Plasma by With P-5'-P 24 U/L 0-33 [facility] pital Alkaline phosphatase [Enzymatic activity/volume] in Serum or Plasma 78 U/L 45-129 N [facility] Calcium [Mass/volume] in Serum or Plasma 9.1 mg/dL 8.5-10.1 [facility] Bilirubin.total [Mass/volume] in Serum or Plasma 1.6 mg/dL 0.3-1.2 Above high normal [facility] Albumin [Mass/volume] in Serum or Plasma by Bromocresol purple (BCP) dye binding method 2.9 g/dL 3.2-4.8 Below low normal [facility] Protein [Mass/volume] in Serum or Plasma 7.7 g/dL 5.7-8.2 [facility] ID Date Data Source [id number] 03/09/2021 08:12:00 AM EDT [facility] Patient Name: SHIRA GATICA : 1950 Sex: F Pt Unit #: [id number] Location:[facility] Provider: Visit Date/Time: 03/09/21 Primary Insurance: MEDICARE [employer] Secondary Insurance: BC/BS [employer] Intake Vital Signs 03/09/21 08:16 Current Height 5 ft 2.5 in Current Weight 235 lb Weight Measurement Method Standing Scale BMI 42.3 BP 118/60 Blood Pressure Location Lt brachial Position Sitting Respiration 18 Pulse 69 Pulse Source Pulse Oximeter Temp 95.5 F L Temp Source Temporal Artery Scan Pulse Oximetry (%) 98 Oxygen Delivery Method room air Intake Visit Reasons: Annual Wellness Visit Nurse Note: 70 year old female here for annual physical. no concerns today. Is patient in pain?: No Allergies aspirin [ASPIRIN] Allergy (Intermediate, Verified 10/17/19 11:31) HIVES influenza virus vaccine, specific Allergy (Intermediate, Verified 10/17/19 11:31) Other, not listed metformin HCl [From Glucophage] Allergy (Intermediate, Verified 10/17/19 11:31) Rash nut - unspecified Allergy (Mild, Verified 10/17/19 11:31) Blisters on body COCONUT Allergy (Unverified 03/09/21 08:18) Vision Wearing glasses?: Yes Fall Risk History of falls: No PHQ-2/9 Over the last 2 weeks, how often have you been bothered by any of the following problems? 1. Little interest or pleasure in doing things: not at all 2. Feeling down, depressed, or hopeless: not at all Total score: 0 HIV Testing Offer - ages 13-64 Requirement for HIV testing offer been met?: Not in age range Hep C Testing Offered: Yes Hep C Requirement met: Refuses today SBIRT Annual Questionnaire Are you currently in recovery for alcohol or substance use?: No How many times in the past year have you had 4 or more drinks in a day?: None How many times in the past year have you used a recreational drug or used a prescription medication for nonmedical reasons?: None Coronavirus Screening Screening Are you currently positive or on isolation for COVID ?: No Do you have any NEW signs of one or more of the following?: no symptoms Do you have NEW signs of at least two of the following?: no symptoms HPI Additional HPI HPI Details: see above. she has no complaints or questions. she is still seeing drs. castelan and david. she feels good and has lost a lot of weight. her edema is gone. [facility] Medical History Acute cervical radiculopathy Asthma CKD (chronic kidney disease) Degenerative joint disease of left hip Diabetes mellitus type 2 in obese Diastolic CHF Gastroesophageal reflux disease Intertriginous candidiasis Mixed hyperlipidemia Osteopenia Seasonal allergic rhinitis Surgical History section Cholecystectomy Status post tonsillectomy Status post tubal ligation Family History Other Asthma Diabetes Heart disease Primary tuberculosis Social History Does the Patient have a Healthcare Proxy: No Does Patient have a DNR?: No Does Patient have a Living Will?: No Hx Recent Travel (where): No Smoking Status: Never smoker alcohol intake: never substance use type: does not use Review of Systems Card Denies chest pain, Denies syncope, Denies leg edema, Denies lightheadedness, Denies palpitations andDenies dyspnea Resp Denies dyspnea Neuro Denies behavioral changes, Denies confusion and Denies syncope Psych Denies anxiety, Denies behavioral changes, Denies confusion, Denies depression, Denies difficulty concentrating, Denies hopelessness and Denies anhedonia Endo Denies palpitations Exam Const General: cooperativ e, healthy appearing, comfortable and no acute distress Nutritional Appearance: obese (23 pound loss in the past year) Orientation: alert, awake and oriented x3 HENMT Head: normal to inspection, normocephalic and atraumatic Ears: hearing grossly normal bilaterally, external ears normal and TM's normal bilaterally General nose exam: external nose normal Mouth: oral mucosae normal Throat: posterior oropharynx normal Eyes Alignment and Position: alignment normal Conjunctivae: conjunctivae normal Cornea: corneas normal Pupils: PERRL EOM: EOM intact bilaterally Neck Neck: normal visual inspection Neck mass: No Thyroid: thyroid normal Lymphatic: no lymphadenopathy noted Chest Chest: normal inspection of the chest Resp Effort Inspection: normal respiratory effort Auscultation: clear to auscultation bilaterally Cardio Rate: regular rate Rhythm: regular rhythm Heart Sounds: S1 normal, S2 normal, no click, no gallops and no murmurs Neuro Cranial Nerves: CN's II-XII intact bilaterally Motor: muscle tone normal throughout Extrem General: no pedal edema Psych Appearance: grossly normal Mental Status: mental status grossly normal Speech and Movement: speech and movement normal Mood: congruent mood Affect: normal affect Attitude: cooperative Thought Process: normal Thought Content: normal Judgment: judgment good Assessment Plan Assessment Plan (1) Annual physical exam: Status: Acute Code(s): Z00.00 - Encounter for general adult medical examination without abnormal findings SNOMED Code(s): 970488238 Category: Medical Plan: she has had the first covid vaccine. she has an eye appt next week. she refuses a mammogram. depression screen is negative. she has been more active. tobacco and alcohol are not issues. recheck annually. (2) Diabetes mellitus type 2 in obese: Status: Chronic Code(s): E11.69 - Type 2 diabetes mellitus with other specified complication; E66.9 - Obesity, unspecified SNOMED Code(s): 24235441 Category: Medical Plan: her a1c has not been checked in over a year. dr castelan is checking everything else. will get an a1c today and recheck in 6 months. bp is excellent. no complications noted. Orders: Orders HGBA1C + EAG Today E11.69 - Type 2 diabetes mellitus with other specified complication, E66.9 - Obesity, unspecified Coding Level of Care Code 39582 Est Pt Extended Comp Diagnoses Annual physical exam Z00.00 Diabetes mellitus type 2 in obese E11.69; E66.9 Additional Codes Intake - Is patient in pain?: No (1126F) <Electronically signed by Crescencio Salinas MD> 03/09/21 0840 Name Value Range Interpretation Code Description Data Casi rce(s) Supporting Document(s) ID Date Data Source [id number] 02/02/2021 12:00:00 AM EDT [facility] Name Value Range Interpretation Code Description Data Casi rce(s) Supporting Document(s) SARS-CoV2 Rapid Antigen Negative [facility] This lab was ordered by [facility] and reported by [facility]. ID Date Data Source [id number] 09/25/2020 04:06:00 PM EDT [facility] Patient Name: SHIRA GATICA : 1950 Sex: F Pt Unit #: [id number] Location:[facility] Provider: Visit Date/Time: 09/25/20 Primary Insurance: MEDICARE [employer] Secondary Insurance: BC/BS [employer] Intake Vital Signs 09/25/20 16:06 BP 174/88 Blood Pressure Location Lt brachial Position Sitting Respiration 24 Pulse 64 Pulse Strength Normal Pulse Source Pulse Oximeter Pulse Oximetry (%) 100 Oxygen Delivery Method room air Intake Visit Reasons: Hand pain Nurse Note: 70 year old here today for a follow up on her hand pain. Is patient in pain?: Yes (right hand) Pain scale (1-10): 3 Allergies aspirin [ASPIRIN] Allergy (Intermediate, Verified 10/17/19 11:31) HIVES influenza virus vaccine, specific Allergy (Intermediate, Verified 10/17/19 11:31) Other, not listed metformin HCl [From Glucophage] Allergy (Intermediate, Verified 10/17/19 11:31) Rash nut - unspecified Allergy (Mild, Verified 10/17/19 11:31) Blisters on body Post menopausal: Yes Vision Wearing glasses?: Yes Fall Risk History of falls: No Ambulatory Aid:: None Gait/Transferring:: Normal HIV Testing Offer - ages 13-64 Requirement for HIV testing offer been met?: Declines today. Pretest education received and acknowledged Hep C Testing Offered: No SBIRT Annual Questionnaire Are you currently in recovery for alcohol or substance use?: No How many times in the past year have you had 4 or more drinks in a day?: None How many times in the past year have you used a recreational drug or used a prescription medication for nonmedical reasons?: None Coronavirus Screening Screening Are you currently positive or on isolation for COVID ?: No Do you have any NEW signs of one or more of the following?: no symptoms Do you have NEW signs of at least two of the following?: no symptoms HPI Additional HPI HPI Details: the pain in her right hand is quite a bit better and the swelling is gone. the prednisone raised her blood sugar significantly. [facility] Medical History Asthma CKD (chronic kidney disease) Cough Diabetes mellitus type 2 in obese Diastolic CHF Gastroesophag eal reflux disease Intertriginous candidiasis Mixed hyperlipidemia Osteopenia Seasonal allergic rhinitis Surgical History section Cholecystectomy Status post tonsillectomy Status post tubal ligation Family History Other Asthma Diabetes Heart disease Primary tuberculosis Social History Does the Patient have a Healthcare Proxy: No Does Patient have a DNR?: No Does Patient have a Living Will?: No Hx Recent Travel (where): No Smoking Status: Never smoker alcohol intake: never substance use type: does not use Exam Const General: cooperative, healthy appearing, no acute distress and well groomed Orientation: alert, awake and oriented x3 Musc Other: right hand and wrist have no swelling or tenderness and full range of motion. Assessment Plan Assessment Plan (1) Arthralgia: Status: Acute Comment: right hand Code(s): M25.50 - Pain in unspecified joint SNOMED Code(s): 46196493 Category: Medical Plan - Crescencio Salinas M.D.: probable osteoarthritis. xray report reviewed. discussed nature of the illness. she will stop theprednisone and start ibuprofen 600 mg tid. recheck in 10 days if not back to normal without any ibuprofen. Coding Level of Care Code 49304 Est Pt Limited Comp Exam Problem Focused Diagnoses Arthralgia M25.50 <Electronically signed by Crescencio Salinas MD> 09/25/20 1623 Name Value Range Interpretation Code Description Data Casi rce(s) Supporting Document(s) ID Date Data Source [id number] 09/22/2020 01:14:00 PM EDT [facility] [address] [place] [address] [phone] NAME SEX PT STATUS ACCOUNT NUMBER SHIRA GATICA REG REF [id number] ORDERING PHYSICIAN LOCATION MEDICAL RECORD NO. Crescencio Salinas M.D. RAD [id number] ATTENDING PHYSICIAN DATE OF DATE OF EXAM/TIME Crescencio Salinas MD 1950 09/22/20 / 1238 TYPE / EXAM Xray Hand Complete RT REASON FOR EXAM pain TECHNIQUE: Frontal, oblique, and lateral views of the right hand were obtained. COMPARISON: None available. FINDINGS: There is no fracture. There is no dislocation. There is narrowing of the interphalangeal joint spaces primarily involving the distal interphalangeal joints with some erosive changes seen at the fourth DIP joint. This could represent a seronegative arthropathy such as psoriatic arthritis amongst other possibilities.. Soft tissue structures are unremarkable. There is no radiopaque foreign body. IMPRESSION: * Narrowing of the interphalangeal joints primarily involving the distal interphalangeal joints wit h some erosive changes seen especially at the fourth DIP joint. Psoriatic arthritis is to be considered for months of the possibilities. Reported By Portia Cárdenas MD on 09/22/201313 Signed By Portia Cárdenas MD on 09/22/201316 Date Time CC: Crescencio Salinas M.D.; Portia Cárdenas MD Techn: RADTC Trans Dt/Tm: Trans by: DT Prt Dt/Tm: [id number]: Total DLP = 0.00 mGy-cm Fluoroscopy Time (in secs): Name Value Range Interpretation Code Description Data Casi rce(s) Supporting Document(s) ID Date Data Source [id number] 09/22/2020 01:10:00 PM EDT [facility] [address] [place] [id number] [phone] NAME SEX PT STATUS ACCOUNT NUMBER SHIRA GATICA REG REF [id number] ORDERING PHYSICIAN LOCATION MEDICAL RECORD NO. Crescencio Salinas M.D. [facility] [id number] ATTENDING PHYSICIAN DATE OF DATE OF EXAM/TIME Crescencio Salinas MD 1950 09/22/20 / 8 TYPE / EXAM Xray Foot Complete LT REASON FOR EXAM injury 4-5 toes TECHNIQUE: Frontal, oblique, and lateral views of the left foot. COMPARISON: None available. FINDINGS: There is no fracture. There is no dislocation. Lisfranc alignment is preserved. Diffuse degenerative changes are seen There are no erosive or proliferative changes. Soft tissue structures are unremarkable. There is no radiopaque foreign body. IMPRESSION: Degenerative change. No fracture is seen. Reported By Portia Cárdenas MD on 04/12/21 1310 Signed By Portia Cárdenas MD on 09/22/20 1314 Date Time CC: Crescencio Salinas M.D.; Portia Cárdenas MD Techn: RADTC Trans Dt/Tm: Trans by: DT Prt Dt/Tm: [id number]: Total DLP = 0.00 mGy-cm Fluoroscopy Time (in secs): Name Value Range Interpretation Code Description Data Casi rce(s) Supporting Document(s) ID Date Data Source [id number] 09/22/2020 08:45:00 AM EDT [facility] Patient Name: SHIRA GATICA : 1950 Sex: F Pt Unit #: [id number] Location:[facility] Provider: Visit Date/Time: 09/22/20 Primary Insurance: MEDICARE [employer] Secondary Insurance: BC/BS [employer] Intake Vital Signs 09/22/20 08:45 BP 142/74 Blood Pressure Location Lt brachial Position Sitting Respiration 22 Pulse 69 Pulse Strength Normal Pulse Source Pulse Oximeter Pulse Oximetry (%) 98 Oxygen Delivery Method room air Intake Visit Reasons: Hand pain Nurse Note: 70 year old here today with c/o right hand pain and left foot pain. The right hand has been about a month and getting worse. She noticed a lump between her thumb and first finger that also is painful . She stated she is unable to tie her shoes today and she stubbed her left foot yesterday. It is hard to walk on today. Is patient in pain?: Yes (Right hand left foot.) Pain scale (1-10): 6 Allergies aspirin [ASPIRIN] Allergy (Intermediate, Verified 10/17/19 11:31) HIVES influenza virus vaccine, specific Allergy (Intermediate, Verified 10/17/19 11:31) Other, not listed metformin HCl [From Glucophage] Allergy (Intermediate, Verified 10/17/19 11:31) Rash nut - unspecified Allergy (Mild, Verified 10/17/19 11:31) Blisters on body Post menopausal: Yes Vision Wearing glasses?: Yes Fall Risk History of falls: No Ambulatory Aid:: None Gait/Transferring:: Normal SBIRT Annual Questionnaire Are you currently in recovery for alcohol or substance use?: No How many times in the past year have you had 4 or more drinks in a day?: None How many times in the past year have you used a recreational drug or used a prescription medication for nonmedical reasons?: None Coronavirus Screening Screening Are you currently positive or on isolation for COVID ?: No Do you have any NEW signs of one or more of the following?: no symptoms Do you have NEW signs of at least two of the following?: no symptoms HPI Additional HPI HPI Details: she has had some mild slowly increasing pain of the right hand for a month. after mopping all of her floors yesterday, the pain got a lot worse and she noted a pea sized nodule in the first web space. she could not tie her shoes due to the pain. she stubbed her 4th and 5th toes yesterdayand today is finding it hard to bear weight due to the pain. [facility] Medical History Asthma CKD (chronic kidney disease) Cough Diabetes mellitus type 2 in obese Diastolic CHF Gastroesophageal reflux disease Intertriginous candidiasis Mixed hyperlipidemia Osteopenia Seasonal allergic rhinitis Surgical History section Cholecystectomy Status post tonsillectomy Status post tubal ligation Family History Other Asthma Diabetes Heart disease Primary tuberculosis Social History Does the Patient have a Healthcare Proxy: No Does Patient have a DNR?: No Does Patient have a Living Will?: No Hx Recent Travel (where): No Smoking Status: Never smoker alcohol intake: never substance use type: does not use Exam Const General: cooperative, no acute distress, well developed and well groomed Nutritional Appearance: obese Orientation: alert, awake and oriented x3 Musc Other: her right hand has tenderness at the mcp's, metacarpal and wrist. there is slight swelling. there is a small tender nodule in the palmar first web space. range of motion is quite painful. her left 4th and 5th toes have no deformity or bruising, but are quite tender in the PIP's and MTP's. Assessment Plan Assessment Plan (1) Arthralgia: Status: Acute Comment: right hand Code(s): M25.50 - Pain in unspecified joint SNOMED Code(s): 08678007 Category: Medical Plan - Crescencio Salinas M.D.: the hand is acutely worse due to overuse yesterday, but there was something going on before that andthat is a new problem. will get and xray, give a 3 day course of prednisone and recheck in 3-4 days. Orders: Orders: Xray Hand Complete RT Today (2) Injury of foot, left: Status: Acute Code(s): S99.922A - Unspecified injury of left foot, initial encounter SNOMED Code(s): 62947099810226099 Category: Medical Plan - Crescencio Salinas M.D.: will get an xray to rule out fracture. she is not interested in taking time off work, so will wait for the xray before discussing nonweightbearing further. Orders: Orders: Xray Foot Complete LT Today Orders Other Medications: New: prednisone 40 mg (2 x 20 mg) PO QDAY 6 tabs 0RF Coding Level of Care Code 20930 Est Pt Intermediate Comp Exam Problem Focused Diagnoses Arthralgia M25.50 Injury of foot, left S99.922A Time Spent (min) 20 <Electronically signed by Crescencio Salinas MD> 09/22/20 0912 Name Value Range Interpretation Code Description Data Casi rce(s) Supporting Document(s) ID Date Data Source [id number] 08/26/2020 10:57:00 AM EDT [facility] ([facility] Name Value Range Interpretation Code Description Data Casi rce(s) Supporting Document(s) Magnesium Level 2.01 [facility] ([facility]) ID Date Data Source [id number] 08/26/2020 10:57:00 AM EDT [facility] ([facility] Name Value Range Interpretation Code Description Data Casi rce(s) Supporting Document(s) White Blood Count 7.6 4.3-10.9 [facility] Red Blood Count 3.86 4.70-6.20 [facility] Hemoglobin 12.2 13.0-17.0 [facility] ([facility]) Platelets 233 130-400 [facility] Hematocrit 37.2 39.0-50.0 [facility] ([facility]) ID Date Data Source [id number] 08/26/2020 10:57:00 AM EDT [facility] ([facility] Name Value Range Interpretation Code Description Data Casi rce(s) Supporting Document(s) Glucose 107 70-100 [facility] [place] Blood Urea Nitrogen 18.9 5-21 [facility] Creatinine 0.9 0.6-1.5 [facility] ([facility]) Sodium 134.3 136-146 [facility] [place] Glomerular filtration rate/1.73 sq M.pre dicted [Volume Rate/Area] in Serum or Plasma by Creatinine-based formula (MDRD) 62 [facility] ([facility]) Chloride 98.3 98-110 [facility] [place] Potassium 3.79 3.5-5.3 [facility] [place] Phosphorus 3.3 [facility] ([facility]) Calcium 9.3 8.4-10.4 [facility] [place] Carbon Dioxide 33.6 20-32 [facility] Albumin 4.0 3.5-4.7 [facility] [place] ID Date Data Source [id number] 07/21/2020 08:01:00 AM [facility] Patient Name: SHIRA GATICA : 1950 Sex: F Pt Unit #: [id number] Location:[facility] Provider: Visit Date/Time: 07/21/20 Primary Insurance: MEDICARE [employer] Secondary Insurance: BC/BS [employer] Intake Vital Signs 07/21/20 08:04 BP 136/70 Blood Pressure Location Lt brachial Position Sitting Respiration 22 Pulse 73 Pulse Strength Normal Pulse Source Pulse Oximeter Pulse Oximetry (%) 98 Oxygen Delivery Method room air Intake Visit Reasons: Diabetes Nurse Note: 69 year old here today for diabetes follow up. She stated she usually has a blood sugarin the 130's. No other concerns for today. Is patient in pain?: No Allergies aspirin [ASPIRIN] Allergy (Intermediate, Verified 10/17/19 11:31) HIVES influenza virus vaccine, specific Allergy (Intermediate, Verified 10/17/19 11:31) Other, not listed metformin HCl [From Glucophage] Allergy (Intermediate, Verified 10/17/19 11:31) Rash nut - unspecified Allergy (Mild, Verified 10/17/19 11:31) Blisters on body Medications - Last Reconciled 07/21/20 by Crescencio Salinas M.D. albuterol sulfate 2.5 mg (3 mL) inhalation Q4H PRN albuterol sulfate 90 mcg/actuation 2 puffs inhalation Q4H PRN fluconazole 150 mg PO QWEEK fluticasone propionate 50 mcg/actuation (Flonase Allergy Relief) 2 spry NS DAILY insulin detemir U-100 (Levemir FlexTouch U-100 Insulin) 55 units (0.55 mL) subcut QDAY lisinopril 10 mg PO DAILY multivitamin with minerals (Charanjit Multivitamin with Mineral) 1 ea PO DAILY pen needle, diabetic (Pen Needle) as directed pravastatin (Pravachol) 20 mg PO DAILY spironolactone 12.5 mg PO QDAY torsemide 10 mg PO QDAY torsemide 5 mg PO QDAY Post menopausal: Yes Vision Wearing glasses?: Yes Fall Risk History of falls: No Ambulatory Aid:: None Gait/Transferring:: Normal SBIRT Annual Questionnaire Are you currently in recovery for alcohol or substance use?: No How many times in the past year have you had 4 or more drinks in a day?: None How many times in the past year have you used a recreational drug or used a prescription medication for nonmedical reasons?: None Coronavirus Screening Screening Are you currently positive or on isolation for COVID ?: Yes (Quarantine x2. Not at present. ) Do you have any NEW signs of one or more of the following?: no symptoms Do you have NEW signs of at least two of the following?: no symptoms [facility] Medical History Asthma CKD (chronic kidney disease) Cough Diabetes mellitus type 2 in obese Diastolic CHF Gastroesophageal reflux disease Intertriginous candidiasis Mixed hyperlipidemia Osteopenia Seasonal allergic rhinitis Surgical History section Cholecystectomy Status post tonsillectomy Status post tubal ligation Family History Other Asthma Diabetes Heart disease Primary tuberculosis Social History Does the Patient have a Healthcare Proxy: No Does Patient have a DNR?: No Does Patient have a Living Will?: No Hx Recent Travel (where): No Smoking Status: Never smoker alcohol intake: never substance use type: does not use HPI Additional HPI HPI Details: as above. her fbs is running <130. she continues to lose weight and continues to feel a lot better. her edema has resolved. she has noted less tolerance to cold in her feet. she wears nylons, but no socks. she does not smoke. she saw both dr castelan and dr hernandez last month. the only change was an increase in the lisinopril. Review of Systems Card Denies chest pain, Denies pedal edema, Denies lightheadedness, Denies palpitations and Denies dyspnea Resp Denies dyspnea Neuro Denies paresthesias Endo Denies palpitations Exam Const General: cooperative, no acute distress and well groomed Nutritional Appearance: obese Orientation: alert, awake and oriented x3 Neck Neck: normal visual inspection, no lymphadenopathy, supple and no JVD present Neck mass: No Thyroid: thyroid normal Carotids: normal carotid upstroke and no bruits Chest Chest: normal inspection of the chest Resp Effort Inspection: normal respiratory effort Auscultation: clear to auscultation bilaterally Cardio Jugular venous pressure: no JVD Rate: regular rate Rhythm: regular rhythm Heart Sounds: S1 normal, S2 normal, no click, no gallops and no murmurs Pulses: dorsalis pedis present bilaterally diminished Skin Other: normal in feet Neuro Sensory Exam: no sensory deficits noted (in the feet) Extrem General: no pedal edema Assessment Plan Assessment Plan (1) Diabetes mellitus type 2 in obese: Status: Chronic Code(s): E11.69 - Type 2 diabetes mellitus with other specified complication; E66.9 - Obesity, unspecified SNOMED Code(s): 30928521 Category: Me dical Plan - Crescencio Salinas M.D.: she did not want more blood drawn at present, so there will be an order for an a1c to do when she can. i will be surprised if it is not improved given the current state of her health and her fbs numbers. the diminished dorsalis pedis pulses may become an issue. discussed protecting feet and keeping them applications coordinator the winter. i asked her to mention this topic to her awning assembler when seen there in december. she will recheck here in the fall for her annual. she was reminded that her mammogramis overdue. Orders Other Medications: Discontinued: permethrin 5% apply second treatment 14 days after first treatment if live lice remain Discontinued Reason: Order 1 applic topical Q14D 60 grams 1RF spayjzwa-[id number]-PG 3.5-10,000-1 mg/mL-unit/mL-% Discontinued Reason: Order 4 drps QID 10 mL 1RF naproxen Discontinued Reason: None 500 mg PO BIDPRN PRN 20 tabs 0RF pain Other Orders: Orders: 3D DIG MAMMO SCREEN BILAT Today Z12.31 HGBA1C + EAG 6 Months E11.9 Coding Level of Care Code 43686 Est Pt Intermediate Comp Exam Expanded Problem Focused Diagnoses Diabetes mellitus type 2 in obese E11.69; E66.9 <Electronically signed by Crescencio Salinas MD> 07/21/20 0837 Name Value Range Interpretation Code Description Data Casi rce(s) Supporting Document(s) ID Date Data Source [id number] 07/10/2020 01:22:00 PM EST [facility] ([facility]) Name Value Range Interpretation Code Description Data Casi rce(s) Supporting Document(s) Magnesium Level 1.88 [facility] ([facility]) ID Date Data Source [id number] 07/10/2020 01:22:00 PM EST [facility] ([facility]) Name Value Range Interpretation Code Description Data Casi rce(s) Supporting Document(s) White Blood Count 7.0 4.3-10.9 [facility] ([facility]) Red Blood Count 3.97 4.70-6.20 [facility] ([facility]) Hemoglobin 12.3 13.0-17.0 [facility] ([facility]) Platelets 207 130-400 [facility] Hematocrit 38.2 39.0-50.0 [facility] ([facility]) ID Date Data Source [id number] 07/10/2020 01:22:00 PM EST [facility] ([facility]) Name Value Range Interpretation Code Description Data Casi rce(s) Supporting Document(s) Glucose 188 70-100 [facility] Blood Urea Nitrogen 23.1 5-21 [facility] ([facility]) Creatinine 1.2 0.6-1.5 [facility] ([facility]) Potassium 3.8 3.5-5.3 [facility] Glomerular filtration rate/1.73 sq M.pre dicted [Volume Rate/Area] in Serum or Plasma by Creatinine-based formula (MDRD) 44 [facility] Sodium 140.4 136-146 [facility] Chloride 100.3 98-110 [facility] Carbon Dioxide 31.0 20-32 [facility] ([facility]) Phosphorus 2.9 [facility] ([facility]) Calcium 9.8 8.4-10.4 [facility] ([facility] Albumin 3.9 3.5-4.7 [facility] ID Date Data Source [id number] 07/09/2020 07:58:00 AM EST [facility] Name Value Range Interpretation Code Description Data Casi rce(s) Supporting Document(s) Leukocytes [#/volume] in Blood by Automated count 6.3 10*3/uL 4.45-10 .71 N [facility] Erythrocytes [#/volume] in Blood by Automated count 4.05 10*6/uL 4.20-5.40 Below low normal [facility] Hemoglobin [Moles/volume] in Blood 12.6 g/dL 10.7-15.4 N [facility] Hematocrit [Volume Fraction] of Blood by Automated count 39.9 % 3 7-47 N [facility] Erythrocyte mean corpuscular volume [Ent itic volume] in Cord blood by Automated count 98.5 fL 80-96 Above high normal [facility] Erythrocyte mean corpuscular hemoglobin [Entitic mass] by Automated count 31.1 pg 27-31 Above high normal [facility] spital Erythrocyte mean corpuscular hemoglobin concentration [Mass/volume] in Cord blood 31.6 g/dL 33-37 Below low normal [facility] Erythrocyte distribution width [Entitic volume] by Automated count 13 % 11-15 N [facility] Platelets [#/volume] in Blood by Automated count 194 10*3/uL 130-472 N [facility] Platelet mean volume [Entitic volume] in Blood 10.7 fL 9.1-13.1 N [facility] Neutrophils/100 leukocytes in Blood by Automated count 57.1 % 41- 77 N [facility] Neutrophils [#/volume] in Blood by Automated count 3.6 U 1.7-7.6 N [facility] Lymphocytes/100 leukocytes in Blood by Automated count 27.8 % 14- 46 N [facility] Lymphocytes [#/volume] in Blood by Automated count 1.7 U 0.6-4.6 N [facility] Monocytes/100 leukocytes in Blood by Automated count 9.6 % 4-12 N [facility] Monocytes [#/volume] in Blood by Automated count 0.6 U 0.2-1.2 N [facility] Eosinophils/100 leukocytes in Blood by Automated count 4.6 % 0-7 N [facility] Eosinophils [#/volume] in Blood by Automated count 0.3 U 0.0-0.5 N [facility] Basophils/100 leukocytes in Blood by Automated count 0.6 % 0.4-1 .3 N [facility] Basophils [#/volume] in Blood by Automated count 0.0 U 0.0-0.2 N [facility] NUCLEATED RED BLOOD CELL 0 % [facility] NUCLEATED RED BLOOD CELL# 0 U [facility] Immature granulocytes [Presence] in Blood by Automated count 0-2 N [facility] Immature granulocytes [#/volume] in Blood by Automated count 0.0 U 0-0.1 N [facility] Manual Differential panel - Blood NO [facility] ID Date Data Source [id number] 07/09/2020 08:47:00 AM EST [facility] Name Value Range Interpretation Code Description Data Casi rce(s) Supporting Document(s) Urea nitrogen [Mass/volume] in Serum or Plasma 16 mg/dL 9-23 N [facility] Sodium [Moles/volume] in Serum or Plasma 140 mmol/L 132-146 [facility] Potassium [Moles/volume] in Serum or Plasma 4.5 mmol/L 3.5-5.5 [facility] Chloride [Moles/volume] in Serum or Plasma 106 mmol/L 99-109 N [facility] Carbon dioxide, total [Moles/volume] in Serum or Plasma 27 mmol/L 20 -31 N [facility] Anion gap in Serum or Plasma 12 mmol/L 8-16 N [facility] Glucose [Mass/volume] in Serum or Plasma 135 mg/dL 74-106 Above high normal [facility] Creatinine 1.0 mg/dL 0.5-1.1 [facility] Glomerular filtration rate/1.73 sq M.pre dicted [Volume Rate/Area] in Serum or Plasma 55 ml/min ABOVE 60 [facility] ital Alanine aminotransferase [Enzymatic acti vity/volume] in Serum or Plasma by With P-5'-P 24 U/L 10-49 [facility] ital Aspartate aminotransferase [Enzymatic ac tivity/volume] in Serum or Plasma by With P-5'-P 28 U/L 0-33 [facility] pital Alkaline phosphatase [Enzymatic activity/volume] in Serum or Plasma 84 U/L 45-129 [facility] Calcium [Mass/volume] in Serum or Plasma 9.1 mg/dL 8.5-10.1 [facility] Bilirubin.total [Mass/volume] in Serum or Plasma 0.8 mg/dL 0.3-1.2 [facility] Albumin [Mass/volume] in Serum or Plasma by Bromocresol purple (BCP) dye binding method 3.5 g/dL 3.2-4.8 [facility] ital Protein [Mass/volume] in Serum or Plasma 7.0 g/dL 5.7-8.2 N [facility] ID Date Data Source [id number] 07/09/2020 07:35:00 AM EST [facility] ([facility]) Name Value Range Interpretation Code Description Data Casi rce(s) Supporting Document(s) Urea nitrogen [Mass/volume] in Serum or Plasma 16 mg/dL 9-23 [facility] ([facility]) I11.0 Potassium [Moles/volume] in Serum or Plasma 4.5 mmol/L 3.5-5.5 [facility] ([facility]) I11.0 Sodium [Moles/volume] in Serum or Plasma 140 mmol/L 132-146 [facility] ([facility]) I11.0 Carbon dioxide, total [Moles/volume] in Serum or Plasma 27 mmol/L 20 -31 [facility] ([facility]) I11.0 Chloride [Moles/volume] in Serum or Plasma 106 mmol/L 99-109 [facility] ([facility]) I11.0 Anion gap in Serum or Plasma 12 mmol/L 8-16 [facility] ([facility]) I11.0 Glucose [Mass/volume] in Serum or Plasma 135 mg/dL 74-106 [facility] ([facility]) I11.0 Creatinine 1.0 mg/dL 0.5-1.1 [facility] ([facility]) I11.0 Glomerular filtration rate/1.73 sq M.pre dicted [Volume Rate/Area] in Serum or Plasma 55 [facility]) I11.0 Alanine aminotransferase [Enzymatic acti vity/volume] in Serum or Plasma by With P-5'-P 24 U/L 10-49 [facility] ([facility]) I11.0 Aspartate aminotransferase [Enzymatic ac tivity/volume] in Serum or Plasma by With P-5'-P 28 U/L 0-33 [facility] ([facility]) I11.0 Alkaline phosphatase [Enzymatic activity/volume] in Serum or Plasma 84 U/L 45-129 [facility] ([facility]) I11.0 Calcium [Mass/volume] in Serum or Plasma 9.1 mg/dL 8.5-10.1 [facility] ([facility]) I11.0 Protein [Mass/volume] in Serum or Plasma 7.0 g/dL 5.7-8.2 [facility] ([facility]) I11.0 Bilirubin.total [Mass/volume] in Serum or Plasma 0.8 mg/dL 0.3-1.2 [facility] ([facility]) I11.0 Albumin [Mass/volume] in Serum or Plasma by Bromocresol purple (BCP) dye binding method 3.5 g/dL 3.2-4.8 [facility] ([facility]) I11.0 ID Date Data Source [id number] 07/09/2020 07:35:00 AM EST [facility] ([facility]) Name Value Range Interpretation Code Description Data Casi rce(s) Supporting Document(s) Leukocytes [#/volume] in Blood by Automated count 6.3 10*3/uL 4.45-10 .71 [facility] ([facility]) I11.0 Hemoglobin [Moles/volume] in Blood 12.6 g/dL 10.7-15.4 [facility] ([facility]) I11.0 Erythrocytes [#/volume] in Blood by Automated count 4.05 10*6/uL 4.20 -5.40 [facility] I11.0 Erythrocyte mean corpuscular volume [Ent itic volume] in Cord blood by Automated count 98.5 fL 80-96 [facility] I11.0 Hematocrit [Volume Fraction] of Blood by Automated count 39.9 % 3 7-47 [facility] ([facility]) I11.0 Erythrocyte distribution width [Entitic volume] by Automated count 13 % 11-15 [facility] ([facility]) I11.0 Erythrocyte mean corpuscular hemoglobin [Entitic mass] by Automated count 31.1 pg 27-31 [facility] ([facility]) I11.0 Erythrocyte mean corpuscular hemoglobin concentration [Mass/volume] in Cord blood 31.6 g/dL 33-37 [facility] ([facility]) I11.0 Platelets [#/volume] in Blood by Automated count 194 10*3/uL 130-472 [facility] ([facility]) I11.0 Platelet mean volume [Entitic volume] in Blood 10.7 fL 9.1-13.1 [facility] ([facility]) I11.0 Neutrophils/100 leukocytes in Blood by Automated count 57.1 % 41- 77 [facility] ([facility]) I11.0 Neutrophils [#/volume] in Blood by Automated count 3.6 U 1.7-7.6 [facility] ([facility]) I11.0 Lymphocytes/100 leukocytes in Blood by Automated count 27.8 % 14- 46 [facility] ([facility]) I11.0 Lymphocytes [#/volume] in Blood by Automated count 1.7 U 0.6-4.6 [facility] ([facility]) I11.0 Eosinophils/100 leukocytes in Blood by Automated count 4.6 % 0-7 [facility] ([facility]) I11.0 Monocytes/100 leukocytes in Blood by Automated count 9.6 % 4-12 [facility] ([facility]) I11.0 Monocytes [#/volume] in Blood by Automated count 0.6 U 0.2-1.2 [facility] ([facility]) I11.0 Eosinophils [#/volume] in Blood by Automated count 0.3 U 0.0-0.5 [facility] ([facility]) I11.0 Basophils/100 leukocytes in Blood by Automated count 0.6 % 0.4-1 .3 [facility] ([facility]) I11.0 Basophils [#/volume] in Blood by Automated count 0.0 U 0.0-0.2 [facility] ([facility]) I11.0 Nucleated Red Blood Cell 0 % [facility] ([facility]) I11.0 Immature granulocytes [Presence] in Blood by Automated count 0.3 0-2 [facility] ([facility]) I11.0 Immature granulocytes [#/volume] in Blood by Automated count 0.0 U 0-0.1 [facility] ([facility]) I11.0 Laboratory test finding (navigational concept) 0 U [facility] ([facility]) I11.0 Manual Differential panel - Blood Laboratory test result [facility] ([facility]) I11.0 ID Date Data Source [id number] 05/27/2020 07:07:00 PM EST [facility] Normal result is "BinaxNow Covid-19 Ag n egative"[employer]Now Covid-19 Ag is a rapid lateral flowimmunochromatographic immunoassayThis test detects both viable(live) and non-viable, SARS-COVand SARS-COV-2.Positive test results do not differentiate between SARS-COVand CBCO-TOK-2Mvrjwpao results , from patients with symptom onset beyondseven days, should be treated as presumptive andconfirmation with a molecular assay, if necessary, forpatient managementIf the differentiation of specific SARS viruses and strainsis needed, additional testing, in consultation with stateand local public health departments, is required.SARS-CoV-2 Ag Resp Ql IA.rapid Name Value Range Interpretation Code Description Data Casi rce(s) Supporting Document(s) ID Date Data Source [id number] 05/27/2020 12:00:00 AM EST [facility] Name Value Range Interpretation Code Description Data Casi rce(s) Supporting Document(s) SARS-CoV-2 (COVID-19) RNA [Presence] in Respiratory specimen by ARASELI with probe detection [facility] This lab was ordered by [facility] and reported by [facility]. ID Date Data Source [id number] 05/27/2020 12:00:00 AM EST [facility] Name Value Range Interpretation Code Description Data Casi rce(s) Supporting Document(s) SARS-CoV2 Rapid Antigen [facility] reported by [facility]. ID Date Data Source 337 03/30/2020 12:00:00 AM EDT [facility] Name Value Range Interpretation Code Description Data Casi rce(s) Supporting Document(s) SARS-CoV2 Rapid Antigen [facility] and reported by [facility]. Procedure Social History Code Duration Value Status Description Data Source(s ) Smoking 12/29/2020 12:00:00 AM EDT Patient has never smoked co mpleted Patient has never smoked [facility] ([facility]) Vital Signs ID Date Data Source UNK Name Value Range Interpretation Code Description Data Source(s) Body weight 244.00 [lb_av] 244.00 [lb_av] [facility]EN T ([facility]) Body height 62 [in_i] 62 [in_i] [facility] 5'2" Body mass index (BMI) [Ratio] 44.6 kg/m2 44.6 k g/m2 [facility] ([facility]) Heart rate 66 /min 66 /min [facility] ([facility]) Systolic blood pressure--sitting 118 mm[Hg] 118 mm[Hg] [facility] ([facility]) Ra, large cuff Diastolic blood pressure--sitting 76 mm[Hg] 76 mm[Hg] [facility] ([facility]) Ra, large cuff Body weight 244.00 [lb_av] 244.00 [lb_av] [facility] T ([facility]) Body height 62 [in_i] 62 [in_i] [facility] ([facility]) 5'2" Body mass index (BMI) [Ratio] 44.6 kg/m2 44.6 k g/m2 [facility] ([facility]) Heart rate 70 /min 70 /min [facility] ([facility]) Systolic blood pressure--sitting 130 mm[Hg] 130 mm[Hg] [facility] ([facility]) large cuff, R forearm Diastolic blood pressure--sitting 70 mm[Hg] 70 mm[Hg] [facility] ([facility]) large cuff, R forearm Oxygen saturation in Arterial blood by Pulse oximetry 97 % 97 % [facility] ([facility]) on room air; 99% on O2 2 LPM Oxygen saturation in Arterial blood by Pulse oximetry --post exerci se 91 % 91 % [facility] ([facility]) on room air; 95% on O2 2 LPM
[2021-05-19] MEDS ORDERED: ENOXAPARIN 100MG/1ML SYRINGE (J1650 PER 10MG) SC ONE (23:10)
[2021-05-20 02:00] VITALS: BP 139/62
--- NOTE | 2021-05-20 14:17 | ECGEPIP ---
[facility] - ED Test Date: 2021-05-19 Pat Name: SHIRA CALLOWAY Department: Room: - Gender: Female Telephone Lines Repairer: Ben MARIN : 1950 Requested By: YAEL Saldivar Order Number: [id number] Reading MD: Jono Castro Measurements Intervals [place] Rate: 88 P: 31 NC: QRS: 21 QRSD: 80 T: 32 QT: 374 QTc: 452 Interpretive Statements Atrial flutter Nonspecific ST-T wave abnormalities Comparison tracing not on file Electronically Signed on 05-20-2021 14:17:42 EST by Jono Castor
--- NOTE | 2021-05-20 14:21 | ECGEPIP ---
[facility] - ED Test Date: 2021-05-19 Pat Name: SHIRA CALLOWAY Department: Room: - Gender: Female Dog Beautician: Ben MARIN : 1950 Requested By: YAEL Saldivar Order Number: [id number] Reading MD: Jono Castro Measurements Intervals [place] Rate: 85 P: 37 DC: 138 QRS: 12 QRSD: 88 T: -57 QT: 356 QTc: 423 Interpretive Statements Normal sinus rhythm Nonspecific ST-T wave abnormalities Less artifact than tracing done 1904 on same date Electronically Signed on 05-20-2021 14:21:00 EST by Jono Castro
== END 2021-05-20 02:12 | disposition short-term general hospital (02) ==
LOC: M ED 18:47 → EDBD 18:47 → M ED 05-20 02:12
DX: I21.4 Non-ST elevation (NSTEMI) myocardial infarction (principal); U07.1 COVID-19; J06.9 Acute upper respiratory infection, unspecified; I50.9 Heart failure, unspecified; E11.9 Type 2 diabetes mellitus without complications; J45.909 Unspecified asthma, uncomplicated; Z88.6 Allergy status to analgesic agent; Z79.899 Other long term (current) drug therapy; Z79.4 Long term (current) use of insulin
CPT/HCPCS: 71045; 80053; 82550; 82553; 82728; 83605; 83615; 83735; 84145; 84484; 85025; 85379; 85384; 85610; 85730; 86140; 87040; 93005; 96360; 96361; 99285; J1650

== ENCOUNTER → 2022-04-29 | Outpatient (CLI) | payer MEDICARE, BC, OTHER ==
[~2022-04-29] MED LIST: INSUDET SC; LISI5TAB11 PO; PRAV20TA2 PO; SPIR-10 PO; TORS10TA3 PO
== END ==
LOC: M PLARAD 14:32
PROVIDERS: ATTEND Orthopaedic Surgery
DX: M75.82 Other shoulder lesions, left shoulder (principal); M25.512 Pain in left shoulder

== ENCOUNTER → 2022-11-26 | Outpatient (REF) | payer MEDICARE, BC, OTHER ==
[2022-11-26 16:45] LABS: APPEARANCE, URINE HAZY (CLEAR); BACTERIA, URINE AUTO NEGATIVE (NEGATIVE); BILIRUBIN, URINE AUTO NEGATIVE (NEGATIVE); BLOOD, URINE BLOOD 1+ (NEGATIVE); COLOR, URINE YELLOW (YELLOW); GLUCOSE, URINE (UA) AUTO 3+ mg/dL (NEGATIVE); KETONE, URINE AUTO NEGATIVE (NEGATIVE); LEUKOCYTE ESTERASE, URINE AUTO TRACE (NEGATIVE); NITRITE, URINE AUTO NEGATIVE (NEGATIVE); PROTEIN, URINE AUTO NEGATIVE (NEGATIVE); RBC, URINE AUTO 2 /HPF (0-3); SPECIFIC GRAVITY URINE AUTO 1.028 (1.002-1.035); SQUAMOUS EPITHELIAL CELL UR AU 6 /HPF (0-6); UROBILINOGEN, URINE AUTO 0.2 mg/dL (0.0-2.0); WBC, URINE AUTO 3 /HPF (0-3)
[2022-11-26 16:49] LABS: BASO # 0.1 10^3/uL (0.0-0.2); BASO % 0.7 % (0.0-1.0); EOS # 0.3 10^3/uL (0.0-0.5); HEMATOCRIT 41.7 % (36.0-47.0); HEMOGLOBIN 13.7 g/dl (12.0-15.5); LYMPH # 2.2 10^3/uL (1.5-5.0); LYMPH % 31.7 % (24.0-44.0); MEAN CORPUSCULAR HEMOGLOBIN 30.9 pg (27.0-33.0); MEAN CORPUSCULAR HGB CONC 32.9 g/dl (32.0-36.5); MEAN CORPUSCULAR VOLUME 93.9 fl (80.0-96.0); MONO # 0.6 10^3/uL (0.0-0.8); MONO % 8.5 % (2.0-8.0); NEUTROPHILS # 3.8 10^3/uL (1.5-8.5); NEUTROPHILS % 54.7 % (36.0-66.0); PLATELET COUNT, AUTOMATED 159 10^3/uL (150-450); RED BLOOD COUNT 4.44 10^6/uL (4.00-5.40); WHITE BLOOD COUNT 6.9 10^3/uL (4.0-10.0)
[2022-11-26 17:00] LABS: ERYTHROCYTE SEDIMENTATION RATE 54 mm/hr (0-30)
[2022-11-26 17:10] LABS: CREATININE,RANDOM URINE 71.4 MG/DL
[2022-11-26 17:11] LABS: ALBUMIN 3.5 G/DL (3.2-5.2); ALKALINE PHOSPHATASE 138 U/L (46-116); ALT/SGPT 16 U/L (7.0-40); AST/SGOT 21 U/L (<34); BILIRUBIN,TOTAL 1.3 MG/DL (0.3-1.2); BLOOD UREA NITROGEN 8 MG/DL (9-23); CALCIUM LEVEL 8.6 MG/DL (8.3-10.6); CARBON DIOXIDE LEVEL 29 MMOL/L (20-31); CHLORIDE LEVEL 98 MMOL/L (98-107); COMPLEMENT C3 151.5 MG/DL (90.0-170.0); COMPLEMENT C4 22.7 MG/DL (12-36); CREATININE FOR GFR 0.79 MG/DL (0.55-1.30); GLOMERULAR FILTRATION RATE > 60.0 (>39); GLUCOSE, FASTING 379 MG/DL (74-106); POTASSIUM SERUM 4.1 MMOL/L (3.5-5.1); SODIUM LEVEL 133 MMOL/L (136-145); TOTAL PROTEIN 6.6 G/DL (5.7-8.2); TOTAL PROTEIN,RANDOM URINE < 6.0 MG/DL (0.0-14.0)
[2022-11-30 05:09] LABS: COMPLEMENT TOTAL (CH50) > 60 U/mL (>41)
== END ==
LOC: M SFHCRHEU 13:12
PROVIDERS: ATTEND Internal Medicine Rheumatology
DX: R76.8 Other specified abnormal immunological findings in serum (principal); M35.3 Polymyalgia rheumatica